=== PATIENT | male | born 1965 | race Caucasian/White ===

== ENCOUNTER → 2023-11-10 10:15 | Outpatient (REF) | payer BC, SELFPAY | LOC: HWRAD 10:15 | PROVIDERS: ATTENDING PHYSICIAN Physician Assistant Medical | DX: M54.50 Low back pain, unspecified (principal) | CPT/HCPCS: 76775 ==

== ENCOUNTER → 2024-01-15 06:32 | Day surgery (SDC) | payer BC, SELFPAY | LOC: GI 06:32 | PROVIDERS: ATTENDING PHYSICIAN Internal Medicine Gastroenterology | DX: Z12.11 Encounter for screening for malignant neoplasm of colon (principal); R19.5 Other fecal abnormalities; K64.8 Other hemorrhoids; K57.30 Diverticulosis of large intestine without perforation or abscess without bleeding | CPT/HCPCS: G0121 ==

== ENCOUNTER 2024-03-25 21:42 | Inpatient (IN) | payer BC, SELFPAY ==
[2024-03-25 14:05] VITALS: BP 136/88
--- NOTE | 2024-03-25 16:05 | ED.GENMED ---
History of Present Illness
General
Chief Complaint: Abdominal Pain
Time Seen by Provider: 03/25/24 16:03
History of Present Illness
History of Present Illness:
HPI: The patient presents with left lower quadrant pain since 9 AM today. He has a history of diverticular disease and had a colonoscopy with Dr. Cristina that showed diffuse diverticulosis earlier this year. The symptoms feel similar to the time
that he had diverticulitis.
EXAM:
GENERAL: Well appearing in mild distress
HEENT: Moist oral mucosa
CARDIOVASCULAR: No murmurs, normal heart rate, regular rhythm, No chest wall tenderness
PULMONARY: No respiratory distress, breath sounds are clear and equal
ABDOMEN: Soft with no peritoneal signs, moderate diffuse abdominal tenderness
NEUROLOGIC: Excellent strength all extremities, no coordination deficits
PSYCHIATRIC: Appropriate mental status, normal insight and judgement
EXTREMITIES: Nontender, no edema, moves all extremities equally
SKIN: No rash, no lesions
TIME OF INITIAL ENCOUNTER: 3:30 PM
NUMBER AND COMPLEXITY OF PROBLEMS ADDRESSED AT THE ENCOUNTER
� Chronic conditions affecting care: Diverticular disease, has had diverticulitis, has had kidney stones
� Acute Exacerbation and/or Progression of Chronic Illness: This is an acute problem
� Differential Diagnosis includes: Diverticulitis, bowel perforation, bowel obstruction,
AMOUNT AND/OR COMPLEXITY OF DATA TO BE REVIEWED AND ANALYZED
� I performed an independent evaluation of and my interpretation is:
EKG:
CT: I personally viewed CT imaging and agree with radiologist interpretation with concern for contained extraluminal perforation and severe diverticulitis
X-rays:
Laboratory Studies: White count 16.6, chemistries unremarkable
Other:
� Review of other/old records: I reviewed records, the patient had a colonoscopy in January which showed diverticulosis involving the entire examined colon
� Clinical information was obtained by an independent historian: I spoke to the at bedside
� Prescriptions/Medications Considered but not given:
� Further testing considered but not performed: Considered Zosyn for treatment however the patient has a penicillin allergy (rash)
RISK OF COMPLICATIONS AND/OR MORBIDITY OR MORTALITY OF PATIENT MANAGEMENT
� Social determinants of health affecting care: Lives at home
� Discussion with other providers: Notified Dr. Condon of the patient's findings; Dr. Robison for admission
� Escalation of care including admission/observation vs risk of discharge considered: The patient arrived somewhat uncomfortable. He had subjective chills at home and has a white count of 16.6. CT imaging delayed due to lack of
CT availability. On reassessment at 9 PM, the patient overall appears improved however the pain persists. Will plan admission to the hospital for further management.
Phy Exam
Physical Exam
Physical Exam:
See HPI
Course
Orders/Labs/Results
Orders:
Orders
03/25/24 16:10
CT Abd/pelvis W Iv Cont Urgent
Comment:
Reason For Exam: diffuse abd pain; prior diverticulitis
HYDROmorphone [Dilaudid] 1 mg IV NOW STA
03/25/24 16:11
0.9% Sodium Chloride 1000 ml [Nss] 1,000 ml IV BOLUS
Ondansetron Injectable [Zofran] 4 mg IV NOW STA
03/25/24 16:24
CMP [Comprehensive Metabolic Panel] Urgent
Complete Blood Count/With Diff Urgent
Lipase Urgent
03/25/24 20:56
Ciprofloxacin 400 mg/[id number] [Cipro 400 mg] 200 ml IV NOW
MetroNIDAZOLE 500 MG/100 ML [Flagyl 500 mg] 100 ml IV NOW
Abnormal Lab Results
03/25/24
16:24
WBC 16.6 H 10^3/uL
(4.8-10.8)
MCH 26.8 L pg
(27.0-31.0)
MCHC 32.6 L g/dL
(33.0-37.0)
MPV 10.6 H fL
(7.4-10.4)
Abs Immat Gran (auto) 0.1 H 10^3/uL
(0-0.05)
Absolute Neuts (auto) 15.1 H 10^3/uL
(1.4-6.5)
Absolute Lymphs (auto) 0.7 L 10^3/uL
(1.2-3.4)
Absolute Monos (auto) 0.7 H 10^3/uL
(0.1-0.6)
Neutrophils % 90.9 H %
(42.2-75.2)
Lymphocytes % 4.3 L %
(20.5-51.1)
Glucose 152 H mg/dl
(70-99)
03/25/24 16:24
03/25/24 16:24
Vital Signs
Initial and Last Documented VS:
Initial Vital Signs
Temp Pulse Resp BP Pulse Ox
98.1 F 95 16 136/88 98
03/25/24 14:05 03/25/24 14:05 03/25/24 14:05 03/25/24 14:05 03/25/24 14:05
Last Documented Vital Signs
Temp Pulse Resp BP Pulse Ox
98.1 F 92 18 148/80 90
03/25/24 14:05 03/25/24 17:52 03/25/24 17:52 03/25/24 17:52 03/25/24 17:52
*Critical Care Note
Total Time (30-74mins, 75-104mins- exclusive of procedures): Not Applicable
ED Attending Note
-
Portions of this chart may have been created with voice recognition software.� Occasional wrong word or��sound alike� substitutions may have occurred due to the inherent limitations of voice recognition software.
Discharge Plan
Departure
Referrals:
Fausto Dejesus PA-C [Family Provider] -
Interventions
Interventions:
*Risk Screen - Suicide Last Done: 03/25/24 16:31
*General Assessment Last Done: 03/25/24 16:31
*Neglect/Abuse Screening Last Done: 03/25/24 16:31
SR-Ixrljn-Jdemzohohg Assessment Last Done: 03/25/24 16:31
Discharge Date and Time
Print Language: PASHTO
[2024-03-25 16:20] VITALS: BMI 31.6
[2024-03-25] MEDS: ZOFRAN 4 MG IV (16:24)
[2024-03-25] MEDS: DILAUDID 1 MG IV (16:24)
[2024-03-25] MEDS: NSS 1000 IV ×2 (16:24→22:44)
[2024-03-25 16:45] LABS: % Basophils 0.2 % (0-2); % Immature Granulocytes 0.5 % (0-0.5); % Lymphocytes 4.3 % (20.5-51.1); % Monocytes 4.1 % (1.7-9.3); % Neutrophils 90.9 % (42.2-75.2); Absolute Immature Granulocytes 0.1 10^3/uL (0-0.05); Absolute Lymphocytes 0.7 10^3/uL (1.2-3.4); Absolute Monocytes 0.7 10^3/uL (0.1-0.6); Absolute Neutrophils 15.1 10^3/uL (1.4-6.5); Hematocrit 45.7 % (39.0-52.0); Hemoglobin 14.9 g/dL (13.0-18.0); Mean Corp Hgb Conc. 32.6 g/dL (33.0-37.0); Mean Corpuscular Hgb 26.8 pg (27.0-31.0); Mean Corpuscular Volume 82.2 fL (80.0-94.0); Mean Platelet Volume 10.6 fL (7.4-10.4); Nucleated Red Blood Cells % 0 % (-); Platelet Count 237 10^3/uL (130-400); Red Blood Cell Count 5.56 10^6/uL (4.70-6.10); Red Cell Dist. Width 14.5 % (11.5-14.5); White Blood Cell Count 16.6 10^3/uL (4.8-10.8)
[2024-03-25 16:51] LABS: ALT (SGPT) 21 U/L (0-50); AST (SGOT) 29 U/L (17-59); Albumin 4.9 g/dl (3.5-5.0); Alkaline Phosphatase 102 U/L (38-126); Blood Urea Nitrogen 15 mg/dl (9-20); Calcium 9.7 mg/dl (8.4-10.2); Carbon Dioxide 26 mmol/L (22-30); Chloride 100 mmol/L (98-107); Estimated Creatinine Clearance 75 ml/min; Glucose 152 mg/dl (70-99); Potassium 4.3 mmol/L (3.5-5.1); Sodium 140 mmol/L (135-145); Total Bilirubin 1.3 mg/dl (0.2-1.3); Total Protein 7.8 g/dl (6.3-8.2); eGFR > 60.00
[2024-03-25 16:59] LABS: Lipase 62 U/L (23-300)
[2024-03-25 17:52] VITALS: BP 148/80
[2024-03-25] MEDS: FLAGYL 500 MG 100 IV (21:07)
--- NOTE | 2024-03-25 21:35 | HPS.HSE ---
Family Physician
-
Family Physician: Fausto Dejesus
Chief Complaint
-
abdominal pain
History of Present Illness
58-year-old male past medical history of hypothyroidism, hypertension, diverticulosis/diverticulitis 10 years ago presenting with left lower quadrant pain since this morning associated with 2 episodes of vomiting. He had chills. He denies
diarrhea. Symptoms feel similar to prior episode of diverticulitis which occurred 10 years ago.
He denies smoking or alcohol use or drugs.
Medical History
Past Medical History
Past Medical History: Reports Other (hypothyroidism, hypertension, diverticulosis/diverticulitis 10 years ago)
Past Surgical History: Reports Other ( Achilles tendon surgery)
Social History
Tobacco: Non-smoker
Alcohol: None
Drug: None
Family History
Family History: Not pertinent
Allergies / Home Medications
Allergies reflects when Allergies were last updated in [employer] (powering [employer]).
Home Medications with original date entered in [employer] (power[employer])
Allergy/Medication List:
Allergies
Allergy/AdvReac Type Severity Reaction Status Date / Time
Penicillins Allergy Mild Rash Verified 03/25/24 14:04
Home Medications
levothyroxine 75 mcg tablet 75 mcg PO DAILY 03/25/24
lisinopril 10 mg tablet 10 mg PO DAILY 03/25/24
therapeutic multivitamin 1 tab PO DAILY 03/25/24
Review of Systems
-
History Source: Patient
A 12 point ROS was completed and negative except as noted: Yes
Constitutional: Reports No Symptoms
EENT: Reports No Symptoms
Respiratory: Reports No Symptoms
Cardiac: Reports No Symptoms
Abdomen/GI: Reports See HPI
: Reports No Symptoms
Musculoskeletal: Reports No Symptoms
Skin: Reports No Symptoms
Neurological: Reports No Symptoms
Endocrine: Reports No Symptoms
Hematologic/Lymphatic: Reports No Symptoms
Psych: Reports No Symptoms
Physical Exam
Vital Signs
Vital Signs
Temp Pulse Resp BP Pulse Ox
98.1 F 92 18 148/80 90
03/25/24 14:05 03/25/24 17:52 03/25/24 17:52 03/25/24 17:52 03/25/24 17:52
Physical Exam
General: Well Developed, Well Nourished and No Apparent Distress
HEENT: NormoCephalic, Moist mucous membranes and Atraumatic
Respiratory: Clear
Cardiac: S1/S2 and Regular Rhythm; No Murmur or Rub
GI: Soft, Non Distended, Normal Bowel Sounds and Tender (diffusely ); No Organomegaly
Rectal: Deferred by Provider
Musculoskeletal: No Clubbing, No Cyanosis and No Edema
Skin: No Rash
Neuro: Nonfocal/grossly intact
Laboratory Results
-
03/25/24 16:24
03/25/24 16:24
Laboratory Results
Total Bilirubin 1.3 mg/dl (0.2-1.3) 03/25/24 16:24
AST 29 U/L (17-59) 03/25/24 16:24
ALT 21 U/L (0-50) 03/25/24 16:24
Alkaline Phosphatase 102 U/L (38-126) 03/25/24 16:24
Lipase 62 U/L (23-300) 03/25/24 16:24
Data Reviewed
-
Lab Data: Labs Reviewed by me
Old Records: Reviewed
Impression/Plan
-
IMPRESSION:
PLAN:
# Severe acute diverticulitis with possible contained extraluminal perforation
-N.p.o.
-IV fluids
-Levaquin/Flagyl
-colorectal surgery consult
-Zofran, Dilaudid as needed
Hypothyroidism
-Continue levothyroxine
Essential hypertension
-Continue lisinopril
Full code
DVT prophylaxis�heparin
N.p.o.
[2024-03-25 21:55] VITALS: BP 128/75
[2024-03-25 22:36] VITALS: BP 124/74
[2024-03-25 22:37] VITALS: BMI 30.5
[2024-03-25] MEDS: TYLENOL 1000 MG PO (22:43)
[2024-03-25] MEDS: LEVAQUIN 150 IV (22:44)
[2024-03-26] VITALS (12 sets, daily range): BP systolic 104–162; BP diastolic 41–84
[2024-03-26] MEDS: SYNTHROID 75 MCG PO (05:36)
[2024-03-26] MEDS: FLAGYL 500 MG 100 IV ×3 (05:36→21:35)
--- NOTE | 2024-03-26 07:36 | W.PN.HOSP.TC ---
Addendum entered and electronically signed by Scot Birch MD 03/26/24 14:46:
severe diverticulitis with perforation.
-continue iv atb
-colorectal surgery planning for OR with colectomy and colostomy
-npo
-ivf
hypothyroidism
-continue levothyroxine
htn
-continue antihypertensive
Original Note:
Today's Communication/Plan
-
.
Assessment / Plan
Assessment / Plan
58-year-old male PMH of hypothyroidism, hypertension, diverticulosis/diverticulitis 10 years ago presenting with left lower quadrant pain and emesis.
# Severe acute diverticulitis with possible contained extraluminal perforation
-NPO
-IV fluids
-Levaquin/Flagyl
-colorectal surgery consulted. Likely will tke patient for sx today due to rising WBC
-Zofran, Dilaudid as needed
-Febrile to 102.1 on 03/25. Tylenol 650 PRN ordered.
- Continue to monitor fever curve
Leukocytosis
- likely secondary to diverticulitis
- WBC uptrending - 16.6 -->23
- Continue to monitor WBC count
Hypothyroidism
-Continue levothyroxine
Essential hypertension
-Hold Lisinopril for now. BP 124/62
- continue to monitor
Full code
DVT prophylaxis�heparin
NPO
--------
CT AP - 03/25
IMPRESSION: As described, CT findings compatible with severe diverticulitis.
Adjacent to the sigmoid colon in the pelvis, there is an extraluminal collection which is predominantly air, with no significant fluid component. This would be compatible with contained extraluminal perforation. No evidence for free air elsewhere
within the abdomen or pelvis.
There is a small to moderate amount of free fluid within the pelvis bilaterally and also within the pelvic cul-de-sac, likely reactive fluid.
1 cm low-density lesions within the spleen, likely a small cyst or hemangioma. This is very likely a benign lesion for which no further imaging follow-up is recommended.
Minimal posterior right pleural effusion. Trace amount of posterior left pleural fluid. Atelectasis within the lower lungs.
Cholelithiasis. No CT findings to suggest acute cholecystitis.
Bilateral fat-containing inguinal hernias, and appears indirect on the left and direct on the right, larger on the left. There is also a small amount of fluid extending into the left inguinal hernia.
Anticipated Discharge: 24 - 48 hours
Subjective/Interval History
-
Date of Service: March 26, 2024
Patient reports 2 out of 10 pain today. Currently n.p.o., likely going for surgery with colorectal due to extraluminal perforation. Patient febrile overnight.
Objective Data
-
Labs:
Laboratory Results
03/26/24
06:00
WBC Pending
Hgb Pending
Hct Pending
Plt Count Pending
Sodium Pending
Potassium Pending
Chloride Pending
Carbon Dioxide Pending
BUN Pending
Creatinine Pending
Glucose Pending
Calcium Pending
Total Bilirubin Pending
AST Pending
ALT Pending
Alkaline Phosphatase Pending
Vital Signs:
Vital Signs
Temp Pulse Resp BP Pulse Ox
99.6 F 104 18 124/74 94
03/26/24 00:20 03/25/24 22:36 03/25/24 22:36 03/25/24 22:36 03/25/24 22:36
I&O
03/25/24 03/26/24 03/27/24
06:59 06:59 06:59
Intake Total 800 / 800
Balance 800 / 800
Review of Systems
-
History Source: Patient
Constitutional: Reports Other (Pain)
Respiratory: Reports No Symptoms
Cardiac: Reports No Symptoms
Abdomen/GI: Reports Abdominal Pain
Neuro: Reports No Symptoms
Physical Exam
-
General: Well Developed, Pain and Conversant
HEENT: Normocephalic and Atraumatic
Respiratory: Clear to Auscultation
Cardiac: Regular Rhythm and S1/S2
GI: Tender, Distended and Other (Bowel sounds heard best in the right upper and right lower quadrant)
Musculoskeletal: No Clubbing, No Cyanosis and No Edema
Skin: Warm and Dry
Neuro: AO x 3
Data Reviewed
-
CT Scan: Report Reviewed by me
Labs: Labs Reviewed by me and Discussed with Physician
Old Records: Reviewed
[2024-03-26 08:22] LABS: Hematocrit 40.7 % (39.0-52.0); Hemoglobin 13.4 g/dL (13.0-18.0); Mean Corp Hgb Conc. 32.9 g/dL (33.0-37.0); Mean Corpuscular Hgb 27.1 pg (27.0-31.0); Mean Corpuscular Volume 82.2 fL (80.0-94.0); Mean Platelet Volume 10.2 fL (7.4-10.4); Platelet Count 180 10^3/uL (130-400); Red Blood Cell Count 4.95 10^6/uL (4.70-6.10); Red Cell Dist. Width 14.6 % (11.5-14.5)
[2024-03-26 08:32] LABS: Lactic Acid 2.5 mmol/L (0.7-2.0)
[2024-03-26 08:55] LABS: Absolute Neutrophils -Man Diff 18.8 10^3/uL (1.4-6.5); Band Neutrophils 29 % (0-3); Lymphocytes 7 % (20-51); Metamyelocytes 3 % (-); Monocytes 7 % (2-9); Myelocytes 1 % (-); Segmented Neutrophils 53 % (42-75)
[2024-03-26 08:56] LABS: Anisocytosis 1+; Hypochromasia 1+; Normal RBC Morphology No; Ovalocytes 1+; Platelets Checked Yes; Total Cells Counted 100
[2024-03-26 09:01] LABS: ALT (SGPT) 17 U/L (0-50); AST (SGOT) 26 U/L (17-59); Albumin 3.5 g/dl (3.5-5.0); Alkaline Phosphatase 73 U/L (38-126); Blood Urea Nitrogen 24 mg/dl (9-20); Calcium 8.7 mg/dl (8.4-10.2); Carbon Dioxide 25 mmol/L (22-30); Chloride 101 mmol/L (98-107); Estimated Creatinine Clearance 53 ml/min; Glucose 104 mg/dl (70-99); Potassium 5.6 mmol/L (3.5-5.1); Sodium 136 mmol/L (135-145); Total Bilirubin 1.7 mg/dl (0.2-1.3); Total Protein 5.9 g/dl (6.3-8.2); eGFR 43.63
[2024-03-26] MEDS: ZESTRIL PO (09:18)
[2024-03-26] MEDS: HEPARIN 5000 UNITS SC ×2 (09:20→23:42)
[2024-03-26] MEDS: NSS 1000 IV (09:20)
--- NOTE | 2024-03-26 09:28 | WOUNDNOTE ---
[facility] RN note: KATHERINE Aragon requested L sided stoma marking. Patient admitted with acute diverticulitis. Patient stated his abdomen is slightly distended. Stoma marked patient L side in 2 places marking L upper davin '1st Choice'. LUQ stoma davin
7.3cm to L of midline and 4.7cm above umbilical line. L lower stoma davin 7.8cm to L of midline along umbilical line. Instructed patient surgeon makes the final decision with stoma placement. Patient gave verbal permission for ostomy nurse to call
his to include for ostomy teaching session next week if patient has an ostomy.
--- NOTE | 2024-03-26 12:12 | CON.CRS ---
Consultation
-
Date/Time Consultation Requested: 03/25/2024, 22:20
Date/Time Consultation Performed: 03/26/2024, 08:00
Requesting Provider: Piper Arnold MD
Performing Provider: Jori Condon MD
Reason for Consultation: diverticulitis
Medical History
-
Chief Complaint: abdominal pain
History of Present Illness:
58-year-old male, with a past medical history of 1 prior attack of diverticulitis about 10 years ago, presents to [place] ER last night due to abdominal pain and vomiting. The patient states this started about 9 AM yesterday and he vomited for
about an hour and a half. His abdominal pain elevated to an 8 out of 10 and he went to the ER. He had chills during this episode. On arrival to the ER his WBC was 16.6. His temperature was 102.1. CT of the abdomen and pelvis showed an
extraluminal collection predominantly air, with no significant fluid component. This is compatible with a contained extraluminal perforation. No evidence for free air.
He was started on IV fluids and IV antibiotics. He currently states he has not had a bowel movement since yesterday. He is not hungry. His pain is now a 3 out of 10. He has remained afebrile since admission. However his WBC is now 23.0. We
have been consulted for further surgical recommendation..
Past Medical History
Past Medical History: Other (hypothyroidism, hypertension, diverticulosis/diverticulitis 10 years ago)
Past Surgical History: Other (Achilles tendon surgery)
Social History
Tobacco: Non-Smoker
Alcohol: None
Drug: None
Family History
Family History: Reviewed & Not Pertinent
Allergies / Home Medications
Allergy/AdvReac Type Severity Reaction Status Date / Time
Penicillins Allergy Rash Verified 03/25/24 22:07
�Medication �Instructions �Recorded �Confirmed �Type
levothyroxine 75 mcg tablet 75 mcg PO DAILY Thyroid 03/25/24 03/25/24 History
lisinopril 10 mg tablet 10 mg PO DAILY Blood Pressure 03/25/24 03/25/24 History
therapeutic multivitamin 1 tab PO DAILY Supplement 03/25/24 03/25/24 History
Review of Systems
-
History Source: Patient
All other systems: Negative unless noted
Constitutional: Fever and Chills
Abdomen/GI: Abdominal Pain and Vomiting
A 10 point review of systems was completed, and was negative except as per HPI.
Physical Exam
Vital Signs
Temp 100 F 03/26/24 11:39
Pulse 88 03/26/24 11:39
Resp Rate 18 03/26/24 11:39
Blood pressure 138/74 03/26/24 11:39
SaO2 99 03/26/24 11:39
03/25/24 03/26/24 03/27/24
06:59 06:59 06:59
Actual Weight 96.36 kg
Body Mass Index (BMI) 30.5
Lab Results / Allergies
03/26/24 08:01
03/26/24 08:01
WBC 23.0 10^3/uL (4.8-10.8) H 03/26/24 08:01
Hgb 13.4 g/dL (13.0-18.0) 03/26/24 08:01
Hct 40.7 % (39.0-52.0) 03/26/24 08:01
Plt Count 180 10^3/uL (130-400) D 03/26/24 08:01
Abs Immat Gran (auto) 0.1 10^3/uL (0-0.05) H 03/25/24 16:24
Neutrophils % 90.9 % (42.2-75.2) H 03/25/24 16:24
Allergy/AdvReac Type Severity Reaction Status Date / Time
Penicillins Allergy Rash Verified 03/25/24 22:07
Physical Exam
General: Well Developed, Well Nourished and No Apparent Distress
GI: Non Distended and Tender (Tender throughout, guarding in all 4 quadrants)
Neuro: AO x 3
Data Reviewed
-
CT Scan: Image Personally Visualized and interpreted, Report Reviewed by me and Discussed with Patient
Labs: Labs Reviewed by me, Discussed with Physician and Discussed with Patient
Assessment / Plan
-
Assessment: 58-year-old male with 1 previous attack of diverticulitis 10 years ago now with abdominal pain and vomiting, found to have sigmoid diverticulitis with an extraluminal perforation and a WBC of 23.0 with guarding on exam
Plan:
Given his exam along with his increased WBC, fever, and CT findings, surgery is recommended. Discussed at length with patient. Surgery would involve a sigmoidectomy with colostomy creation. Patient is to remain NPO. We have consulted the wound
nurse for stoma marking. Continue IV fluids and IV antibiotics. OR preparations are in place. Anticipate later afternoon.
[2024-03-26 13:34] LABS: INR 1.76; PT 20.4 Sec (11.4-14.6)
[2024-03-26 13:36] LABS: APTT 38.9 Sec (23.4-35.0)
[2024-03-26] MEDS: TYLENOL 650 MG PO (16:01)
--- NOTE | 2024-03-26 18:15 | PTCARENOTE ---
Continued monitoring of patient throughout shift, pt has no increase in pain remains 3/10 not requiring Dilaudid.Continues on IVF. Pt blood pressure stable throughout shift HR slightly elevated 100s when febrile. POX 95-96% on RA no shortness of
breath noted. Pt having temps most recent being 101.7, medicated with tylenol prior with no improvement spoke with MD orders for additional tylenol to be given. Upon retrieval of orders OR calling for report, Updated RN on fever trend and last
administered tylenol. Plan to give down in OR. Pt taken to OR in bed with chart and automobile brake bonder antibiotic. updated on POC.
--- NOTE | 2024-03-26 20:38 | W.IMMPOSTOP ---
Surgical Immed Post Op Note
-
Primary Surgeon: Ping George MD
Hand Upper And Bottom Lacer: OLGA Foreman
Pre-op Diagnosis: Perforated sigmoid diverticulitis
Post-op Diagnosis: Same
Procedure Performed: Exploratory laparotomy, sigmoidectomy and end colostomy (Ines's procedure)
Anesthesia Type: STEPHANIE, GET
Specimen / Cultures: Peritoneal cultures (aerobic and anaerobic)
Sigmoid colon (suture is distal)
Estimated Blood Loss: 30cc
Complications: None
Operative Findings: Moderate amount of purulence throughout the abdomen (Hinchey III)
Large perforation of the distal sigmoid colon
Seprafilm around the stoma and under the incision
Patient's updated.
--- NOTE | 2024-03-26 22:30 | PTCARENOTE ---
Received pt. to [address] from PACU, surgical incisions inspected with off-going PACU nurse. NGT resumed to suction per orders with minimal dark green output, childs draining clear yellow urine, IVF infusing, 2L NC continued from PACU. Pt. A&Ox3,
drowsy but arousable to verbal stimuli, even and unlabored breathing on 2L NC, and VSS. Bed locked and in lowest position, side rails in place, and call light within reach.
[2024-03-26] MEDS: LEVAQUIN 150 IV (23:42)
[2024-03-26] MEDS: NSS IV (23:49)
[2024-03-27] VITALS (10 sets, daily range): BP systolic 92–129; BP diastolic 56–67
[2024-03-27] MEDS: NSS 1000 IV ×2 (02:12→13:08)
[2024-03-27] MEDS: FLAGYL 500 MG 100 IV ×3 (05:54→21:03)
[2024-03-27] MEDS: SYNTHROID 75 MCG PO (05:55)
[2024-03-27 07:07] LABS: Hematocrit 38.1 % (39.0-52.0); Hemoglobin 12.8 g/dL (13.0-18.0); Mean Corp Hgb Conc. 33.6 g/dL (33.0-37.0); Mean Corpuscular Hgb 26.7 pg (27.0-31.0); Mean Corpuscular Volume 79.5 fL (80.0-94.0); Mean Platelet Volume 10.9 fL (7.4-10.4); Platelet Count 148 10^3/uL (130-400); Red Blood Cell Count 4.79 10^6/uL (4.70-6.10); Red Cell Dist. Width 14.9 % (11.5-14.5); White Blood Cell Count 15.7 10^3/uL (4.8-10.8)
[2024-03-27 07:24] LABS: Absolute Neutrophils -Man Diff 14.9 10^3/uL (1.4-6.5); Band Neutrophils 37 % (0-3); Lymphocytes 4 % (20-51); Segmented Neutrophils 58 % (42-75); Total Cells Counted 100
[2024-03-27 07:25] LABS: Monocytes 1 % (2-9)
[2024-03-27 07:26] LABS: Anisocytosis 1+; Hypochromasia 1+; Normal RBC Morphology No; Toxic Granulation 1+
[2024-03-27 07:27] LABS: ALT (SGPT) 15 U/L (0-50); AST (SGOT) 26 U/L (17-59); Albumin 2.5 g/dl (3.5-5.0); Alkaline Phosphatase 57 U/L (38-126); Blood Urea Nitrogen 24 mg/dl (9-20); Calcium 7.4 mg/dl (8.4-10.2); Carbon Dioxide 24 mmol/L (22-30); Chloride 102 mmol/L (98-107); Estimated Creatinine Clearance 60 ml/min; Glucose 121 mg/dl (70-99); Platelets Checked Yes; Potassium 4.2 mmol/L (3.5-5.1); Sodium 134 mmol/L (135-145); Total Bilirubin 0.8 mg/dl (0.2-1.3); Total Protein 4.7 g/dl (6.3-8.2); eGFR 50.26
[2024-03-27] MEDS: HEPARIN 5000 UNITS SC ×2 (08:07→15:05)
[2024-03-27] MEDS: ZESTRIL 10 MG PO (08:07)
--- NOTE | 2024-03-27 10:01 | CM ---
milieu manager reviewed patient's chart and met with patient and patient lives with his spouse in a 2 story home, no steps to enter, patient is independent with adl's and ambulation no dme, patient drives, per notes spouse to come to [facility]
for [facility], plan is to home with visiting nurses, options reviewed and patient is agreeable to [facility], referral sent to [facility].
Pharmacy: [facility]
PCP: Dr. Beltran
Plan; Home with VN
--- NOTE | 2024-03-27 11:40 | W.PN.CRS1 ---
Today's Communication / Plan
-
NGT/NPO/IVF
Assessment/Plan
-
58 yo male who is POD #1 ex lap with Ines's procedure due to perforated sigmoid diverticulitis
Last fever was around time of surgery, currently AFVSS
Leukocytosis improving post op
Cr trending back down
Await bowel function: NGT with bilious outputs
--NPO with NGT to suction until ROBF
--IVF as per medicine team
--Multimodal analgesics, hold NSAIDs d/t renal function
--Stoma nurse consulted for ostomy teaching
--C/W IV ABX, Wound cx pending
--Follow labs
--C/W childs
--IV protonix 40mg for GI ppx
--Heparin sq and SCD's for VTE ppx
Subjective Data
Procedure
Exploratory laparotomy, sigmoidectomy and end colostomy (Ines's procedure)
Subjective Data
Date of Service: March 27, 2024
Patient seen and examined at bedside with Dr. George. Denies n/v. Pain minimal. No passage of flatus as of yet. OOB to chair, comfortable.
Objective Data
-
Vital Signs
Temp Pulse Resp BP Pulse Ox
98.3 F 91 16 109/60 97
03/27/24 07:15 03/27/24 08:07 03/27/24 07:15 03/27/24 08:07 03/27/24 08:06
Intake & Output
03/26/24 03/27/24 03/28/24
06:59 06:59 06:59
Intake Total 800 / 800 270 / 270
Output Total 500 / 500
Balance 800 / 800 -230 / -230
Intake:
Oral fluids 120 / 120
IV fluids (Total) 800 / 800 150 / 150
NORMOSOL 100 / 100
NSS 50 / 50
Amount instilled into GI Tube ( 0 / 0
Total)
[place] Sump 0 / 0
Output:
Gastrointestinal tube output ( 0 / 0
Total)
[place] Sump 0 / 0
Urine, Childs 500 / 500
Other:
Number of approximated MODERATE 2
amounts of urine
Lab Results
03/27/24 06:02
03/27/24 06:02
Physical Exam
-
General: No Acute Distress
HEENT: Grossly Normal
Abdomen: Soft, Distended, Non Tender, No Bowel Movement, No Flatus and Other (stoma pink/viable with bowel sweat in appliance. NGT with bilious green outputs)
Skin: Warm and Dry
Wound: Dressing in Place (Aquacel dressing: shadowing noted)
--- NOTE | 2024-03-27 12:40 | W.PN.HOSP.TC ---
Today's Communication/Plan
-
NAD, resting comfortably in bed
Scleral anicteric, NGT with green drainage
Moist mucous membranes
No JVD
CTA bilateral
Normal S1-S2 no murmurs
Soft nontender nondistended bowel sounds active
-Incision line covered with a bandage noted some dried blood under however I did not lift the bandage off. Colostomy with some blood. No air
No peripheral pitting edema
Moves extremities spontaneously
AAOx3
Severe sepsis secondary to suspected acute diverticulitis with perforation. S/p colectomy with colostomy with surgery. Noted drainage at the time of surgery. Levofloxacin and metronidazole IV. At this time we will continue this. Follow-up on
wound culture. Maintain NGT. Will need colostomy care instructions on DC. Heart remains in place likely able to take out in the next 24 hours perform trial of void at that time. IV fluids. Bowel rest. Analgesics. Follow surgery recommendation
-Will need eventual C-scope within the next 6 to 8 weeks once the bowels cooldown.
-Lactate has been ordered to be repeated. Will need to follow-up. IV fluids for now
MIGUEL likely prerenal in nature improving. Continue IV fluids. Avoid nephrotoxins hypotension.
Hyponatremia, acute, expect to improve once starting p.o. intake. Provide IV fluids for now.
Pseudo hypocalcemia corrects 8.6 with albumin
Hypertension continue hypertensive
GERD continue PPI
Hypothyroidism levothyroxine
Assessment / Plan
Assessment / Plan
58-year-old male PMH of hypothyroidism, hypertension, diverticulosis/diverticulitis 10 years ago presenting with left lower quadrant pain and emesis.
# Severe acute diverticulitis with possible contained extraluminal perforation
-NPO
-IV fluids
-Levaquin/Flagyl
-colorectal surgery consulted. Likely will tke patient for sx today due to rising WBC
-Zofran, Dilaudid as needed
-Febrile to 102.1 on 03/25. Tylenol 650 PRN ordered.
- Continue to monitor fever curve
Leukocytosis
- likely secondary to diverticulitis
- WBC uptrending - 16.6 -->23
- Continue to monitor WBC count
Hypothyroidism
-Continue levothyroxine
Essential hypertension
-Hold Lisinopril for now. BP 124/62
- continue to monitor
Full code
DVT prophylaxis�heparin
NPO
--------
CT AP - 03/25
IMPRESSION: As described, CT findings compatible with severe diverticulitis.
Adjacent to the sigmoid colon in the pelvis, there is an extraluminal collection which is predominantly air, with no significant fluid component. This would be compatible with contained extraluminal perforation. No evidence for free air elsewhere
within the abdomen or pelvis.
There is a small to moderate amount of free fluid within the pelvis bilaterally and also within the pelvic cul-de-sac, likely reactive fluid.
1 cm low-density lesions within the spleen, likely a small cyst or hemangioma. This is very likely a benign lesion for which no further imaging follow-up is recommended.
Minimal posterior right pleural effusion. Trace amount of posterior left pleural fluid. Atelectasis within the lower lungs.
Cholelithiasis. No CT findings to suggest acute cholecystitis.
Bilateral fat-containing inguinal hernias, and appears indirect on the left and direct on the right, larger on the left. There is also a small amount of fluid extending into the left inguinal hernia.
Anticipated Discharge: > 48 hours
Subjective/Interval History
-
Date of Service: March 27, 2024
There are no new complaints. States he is feeling significantly better after colostomy. Tolerating NGT well.
Objective Data
-
Labs:
Laboratory Results
03/27/24
06:02
WBC 15.7 H
Hgb 12.8 L
Hct 38.1 L
Plt Count 148
Sodium 134 L
Potassium 4.2
Chloride 102
Carbon Dioxide 24
BUN 24 H
Creatinine 1.6 H
Glucose 121 H
Calcium 7.4 L
Total Bilirubin 0.8
AST 26
ALT 15
Alkaline Phosphatase 57
Vital Signs:
Vital Signs
Temp Pulse Resp BP Pulse Ox
98.1 F 87 16 100/60 96
03/27/24 11:10 03/27/24 11:10 03/27/24 11:10 03/27/24 11:10 03/27/24 11:10
I&O
03/26/24 03/27/24 03/28/24
06:59 06:59 06:59
Intake Total 800 / 800 270 / 270
Output Total 500 / 500 400 / 400
Balance 800 / 800 -230 / -230 -400 / -400
[2024-03-27] MEDS: PROTONIX IV 40 MG IV (13:00)
[2024-03-27] MEDS: NSS (PRESERVATIVE FREE) 10 ML IV (13:00)
[2024-03-27] MEDS: NSS (PRESERVATIVE FREE) IV (19:21)
[2024-03-27] MEDS: OFIRMEV 100 IV (19:43)
[2024-03-27] MEDS: LEVAQUIN 150 IV (22:34)
[2024-03-28] MEDS: HEPARIN 5000 UNITS SC ×3 (00:25→17:24)
[2024-03-28] MEDS: NSS 1000 IV ×2 (01:48→13:28)
[2024-03-28] MEDS: SYNTHROID 75 MCG PO (05:57)
[2024-03-28] MEDS: FLAGYL 500 MG 100 IV ×3 (05:57→21:06)
[2024-03-28 07:02] VITALS: BP 133/70
[2024-03-28] MEDS: NSS (PRESERVATIVE FREE) 10 ML IV (08:19)
[2024-03-28] MEDS: PROTONIX IV 40 MG IV (08:20)
[2024-03-28] MEDS: ZESTRIL 10 MG PO (08:20)
--- NOTE | 2024-03-28 09:19 | W.PN.HOSP.TC ---
Today's Communication/Plan
-
Continue Levaquin and flagyl
Continue to IVF
Follow surgery recommendations for NG tube, and advancing diet.
Assessment / Plan
Assessment / Plan
Assessment-
58-year-old male PMH of hypothyroidism, hypertension, diverticulosis/diverticulitis 10 years ago presenting with left lower quadrant pain and emesis.
Plan -
Severe sepsis -
Likely from purulent peritonitis secondary to extraluminal perforation of diverticulitis.
SIRS criteria plus elevated lactic acid levels, repeat lactic acid levels yesterday did not result
Ordered a repeat lactic acid levels today. Follow-up lactic acid levels for sepsis resolution
Currently patient is afebrile, WBC trending down, leukocytosis improving, tachycardia and tachypnea resolved.
Preliminary wound culture for abdominal fluids has gram-negative bacilli
Pending final cultures. Follow-up on cultures.
Severe acute diverticulitis with extraluminal perforation and purulent peritonitis.
S/p exploratory laparotomy with Brower's procedure, POD #2
Colostomy-minimal drainage, currently on voiding trial.
Continue IV fluid support and bowel rest. NG tube clamping per surgery recommendations.
Levaquin and Flagyl-day 4, leukocytosis improving.
Zofran for nausea and Dilaudid for pain as needed.
Patient was febrile upon admission, currently remains afebrile.
Continue monitoring temperature curve
Leukocytosis
Likely secondary to peritonitis, WBC peaked to 23, currently WBC trending down-18-13.3.
Continue antibiotics.
Continue to trend CBC.
MIGUEL-
Prerenal azotemia secondary to purulent peritonitis and diverticulitis.
Improving with IV fluids, currently Sr.Cr-1.4.
Continue IV hydration and continue to trend renal function.
Avoid nephrotoxic agents,
Hypothyroidism
Continue levothyroxine
Essential hypertension
Continue lisinopril
continue to monitor
Full code
DVT prophylaxis -on SCD.
Data reviewed
CT AP - 03/25
IMPRESSION: As described, CT findings compatible with severe diverticulitis.
Adjacent to the sigmoid colon in the pelvis, there is an extraluminal collection which is predominantly air, with no significant fluid component. This would be compatible with contained extraluminal perforation. No evidence for free air elsewhere
within the abdomen or pelvis.
There is a small to moderate amount of free fluid within the pelvis bilaterally and also within the pelvic cul-de-sac, likely reactive fluid.
1 cm low-density lesions within the spleen, likely a small cyst or hemangioma. This is very likely a benign lesion for which no further imaging follow-up is recommended.
Minimal posterior right pleural effusion. Trace amount of posterior left pleural fluid. Atelectasis within the lower lungs.
Cholelithiasis. No CT findings to suggest acute cholecystitis.
Bilateral fat-containing inguinal hernias, and appears indirect on the left and direct on the right, larger on the left. There is also a small amount of fluid extending into the left inguinal hernia.
Anticipated Discharge: > 48 hours
Subjective/Interval History
-
Date of Service: March 28, 2024
Patient reports no complaints overnight his NG tube drain overnight has 400 mL of collection by 6:30 AM in the morning. Patient reports discomfort from NG tube and belching.
Otherwise denies any other complaints.
Objective Data
-
Labs:
Laboratory Results
03/28/24
08:07
WBC Pending
Hgb Pending
Hct Pending
Plt Count Pending
Sodium Pending
Potassium Pending
Chloride Pending
Carbon Dioxide Pending
BUN Pending
Creatinine Pending
Glucose Pending
Calcium Pending
Vital Signs:
Vital Signs
Temp Pulse Resp BP Pulse Ox
99.8 F 81 16 133/70 95
03/28/24 07:02 03/28/24 07:02 03/28/24 07:02 03/28/24 08:20 03/28/24 08:00
I&O
03/27/24 03/28/24 03/29/24
06:59 06:59 06:59
Intake Total 270 / 270 1380 / 1380
Output Total 500 / 500 2375 / 2375
Balance -230 / -230 -995 / -995
Review of Systems
-
History Source: Patient
Constitutional: Reports No Symptoms
Respiratory: Reports No Symptoms
Cardiac: Reports No Symptoms
Abdomen/GI: Reports Other (Belching, mild pain in the abdomen. Noticed some gas through ostomy.)
Genitourinary: Reports No Symptoms
Musculoskeletal: Reports No Symptoms
Endocrine: Reports No Symptoms
Hematologic / Lymphatic: Reports No Symptoms
Physical Exam
-
General: No Apparent Distress, Comfortable and Other (NG tube, ostomy present, wound dressing on abdomen intact, ostomy output-not significant, NG tube output-bilious stained, 400 mL overnight.)
HEENT: Normocephalic, Atraumatic and Moist Mucous Membranes
Respiratory: Clear to Auscultation; Negative Wheezes, Rales or Rhonchi
Cardiac: Regular Rhythm and S1/S2; Negative Murmur, Rub or Gallop
GI: Soft, Nontender, Nondistended and Normal Bowel Sounds
Genito-urinary: No Costovertebral Tender
Musculoskeletal: No Clubbing, No Cyanosis and No Edema
Skin: Warm
Neuro: AO x 3
Psych: Calm
[2024-03-28 09:32] LABS: Hematocrit 32.3 % (39.0-52.0); Hemoglobin 10.8 g/dL (13.0-18.0); Mean Corp Hgb Conc. 33.4 g/dL (33.0-37.0); Mean Corpuscular Hgb 26.5 pg (27.0-31.0); Mean Corpuscular Volume 79.4 fL (80.0-94.0); Platelet Count 155 10^3/uL (130-400); Red Blood Cell Count 4.07 10^6/uL (4.70-6.10); Red Cell Dist. Width 14.9 % (11.5-14.5); White Blood Cell Count 13.6 10^3/uL (4.8-10.8)
[2024-03-28 10:07] LABS: Blood Urea Nitrogen 21 mg/dl (9-20); Calcium 7.7 mg/dl (8.4-10.2); Carbon Dioxide 25 mmol/L (22-30); Chloride 104 mmol/L (98-107); Estimated Creatinine Clearance 69 ml/min; Glucose 90 mg/dl (70-99); Magnesium 2.2 mg/dl (1.6-2.3); Potassium 4.1 mmol/L (3.5-5.1); Sodium 136 mmol/L (135-145); eGFR 58.99
[2024-03-28 10:53] VITALS: BP 133/70
[2024-03-28 11:05] VITALS: BP 141/59
--- NOTE | 2024-03-28 11:22 | CM ---
Chart reviewed and plan is to home with spouse and [facility] when stable.
Plan; Home with spouse and [facility] when stable.
--- NOTE | 2024-03-28 11:33 | W.PN.HOSP.TC ---
Today's Communication/Plan
-
.
Assessment / Plan
Assessment / Plan
NAD, resting comfortably in bed
Scleral anicteric, NGT with green drainage
Moist mucous membranes
No JVD
CTA bilateral
Normal S1-S2 no murmurs
Soft nontender nondistended bowel sounds absent
-Incision line covered with a bandage noted some dried blood under however I did not lift the bandage off. Colostomy with some blood. No air
No peripheral pitting edema
Moves extremities spontaneously
AAOx3
Severe sepsis secondary to suspected acute diverticulitis with perforation. S/p colectomy with colostomy with surgery. Noted drainage at the time of surgery. Levofloxacin and metronidazole IV. At this time we will continue this. Follow-up on
wound culture. Maintain NGT. Will need colostomy care instructions on DC. IV fluids. Bowel rest. Analgesics. Follow surgery recommendation
-Will need eventual C-scope within the next 6 to 8 weeks once the bowels cooldown.
-Lactate has been ordered to be repeated. Will need to follow-up. IV fluids for now
MIGUEL likely prerenal in nature improving. Continue IV fluids. Avoid nephrotoxins hypotension.
-On ACEi renal function continues to improve. Would continue the same
- -Would not hold at this time time
-Seems close to his baseline renal function at this time.
Hyponatremia, acute, expect to improve once starting p.o. intake. Provide IV fluids for now.
Pseudohypocalcemia corrects 8.6 with albumin
Hypertension continue hypertensive
GERD continue PPI
Hypothyroidism levothyroxine
Anticipated Discharge: 24 - 48 hours
Subjective/Interval History
-
Date of Service: March 28, 2024
Seen and examined. No new complaints. No acute overnight events.
Family at bedside. Update provided.
States he is feeling much better. Still has significant output from NGT.
Bag gets some air and blood in it.
States earlier this morning his bowels were rumbling.
Objective Data
-
Labs:
Laboratory Results
03/28/24
08:07
WBC 13.6 H
Hgb 10.8 L
Hct 32.3 L
Plt Count 155
Sodium 136
Potassium 4.1
Chloride 104
Carbon Dioxide 25
BUN 21 H
Creatinine 1.4 H
Glucose 90
Calcium 7.7 L
Vital Signs:
Vital Signs
Temp Pulse Resp BP Pulse Ox
99.8 F 52 16 141/59 95
03/28/24 11:05 03/28/24 11:05 03/28/24 11:05 03/28/24 11:05 03/28/24 11:05
I&O
03/27/24 03/28/24 03/29/24
06:59 06:59 06:59
Intake Total 270 / 270 1380 / 1380
Output Total 500 / 500 2375 / 2375 300 / 300
Balance -230 / -230 -995 / -995 -300 / -300
--- NOTE | 2024-03-28 12:11 | W.PN.CRS1 ---
Today's Communication / Plan
-
C/w NGT
Assessment/Plan
-
58 yo male who is POD #2 ex lap with Ines's procedure due to perforated sigmoid diverticulitis
Last fever was around time of surgery, currently AFVSS
Leukocytosis improving post op
Cr trending back down
Mild anemia likely secondary to hemodilution, although with expected intraop losses
Await bowel function: NGT with bilious outputs
--NPO with NGT to suction until ROBF
--IVF as per medicine team
--Multimodal analgesics, hold NSAIDs d/t renal function
--Stoma nurse consulted for ostomy teaching
--C/W IV ABX, Wound cx with gnb, final results pending
--Follow labs
--VT today
--IV protonix 40mg for GI ppx
--Heparin sq and SCD's for VTE ppx
Subjective Data
Procedure
Exploratory laparotomy, sigmoidectomy and end colostomy (Ines's procedure)
Subjective Data
Date of Service: March 28, 2024
Patient seen and evaluated at bedside with Dr George. Brien n/v. Denies pain. No passage of flatus as of yet.
Objective Data
-
Vital Signs
Temp Pulse Resp BP Pulse Ox
99.8 F 52 16 141/59 95
03/28/24 11:05 03/28/24 11:05 03/28/24 11:05 03/28/24 11:05 03/28/24 11:05
Intake & Output
03/27/24 03/28/24 03/29/24
06:59 06:59 06:59
Intake Total 270 / 270 1380 / 1380
Output Total 500 / 500 2375 / 2375 300 / 300
Balance -230 / -230 -995 / -995 -300 / -300
Intake:
Oral fluids 120 / 120
IV fluids (Total) 150 / 150 1100 / 1100
NORMOSOL 100 / 100
NSS 50 / 50
IV piggybacks 100 / 100
Amount instilled into GI Tube ( 0 / 0 180 / 180
Total)
[place] Sump 0 / 0 180 / 180
Output:
Gastrointestinal tube output ( 0 / 0 900 / 900
Total)
[place] Sump 0 / 0 900 / 900
Urine, Heart 500 / 500 625 / 625
Urine, Voided 850 / 850 300 / 300
Other:
Number of approximated MODERATE 2
amounts of urine
Lab Results
03/28/24 08:07
03/28/24 08:07
Physical Exam
-
General: No Acute Distress
HEENT: Grossly Normal
Abdomen: Soft, Distended, Non Tender, No Bowel Movement, No Flatus and Other (stoma pink/viable with bowel sweat in appliance. NGT with bilious green outputs)
Skin: Warm and Dry
Wound: Dressing in Place (Aquacel dressing: shadowing noted)
[2024-03-28 14:26] LABS: Lactic Acid 0.9 mmol/L (0.7-2.0)
[2024-03-28 15:02] VITALS: BP 135/67
[2024-03-28] MEDS: NSS (PRESERVATIVE FREE) IV (19:30)
[2024-03-28] MEDS: LEVAQUIN 150 IV (22:51)
[2024-03-28] MEDS: MELATONIN PO (22:52)
[2024-03-28 23:00] VITALS: BP 134/67
[2024-03-29] MEDS: HEPARIN 5000 UNITS SC ×4 (00:11→23:00)
[2024-03-29] MEDS: MELATONIN PO ×2 (01:06→23:10)
[2024-03-29] MEDS: NSS 1000 IV ×2 (02:47→14:49)
[2024-03-29] MEDS: FLAGYL 500 MG 100 IV ×3 (05:13→21:31)
[2024-03-29] MEDS: SYNTHROID 75 MCG PO (05:16)
[2024-03-29 07:20] VITALS: BP 144/73
[2024-03-29] MEDS: PROTONIX IV 40 MG IV (08:58)
[2024-03-29] MEDS: NSS (PRESERVATIVE FREE) 10 ML IV (08:58)
[2024-03-29] MEDS: ZESTRIL 10 MG PO (08:59)
--- NOTE | 2024-03-29 10:56 | W.PN.CRS1 ---
Today's Communication / Plan
-
continue NGT
I/S
lozenge/spray for NGT irritation
Assessment/Plan
-
58 yo male who is POD # 3 ex lap with Ines's procedure due to perforated sigmoid diverticulitis
Last fever was around time of surgery, currently AFVSS
Labs still pending today
Await bowel function: NGT with bilious outputs, total output 450ml
--NPO with NGT to suction until ROBF
--IVF as per medicine team
--Multimodal analgesics, hold NSAIDs d/t renal function
--Stoma nurse consulted for ostomy teaching, okay to change midline dressing during colostomy change
--C/W IV ABX, Wound cx with gnb, final results pending
--Follow labs, still pending this AM
--IV protonix 40mg for GI ppx
--Heparin sq and SCD's for VTE ppx
--I/S
Subjective Data
Procedure
Exploratory laparotomy, sigmoidectomy and end colostomy (Ines's procedure)
Subjective Data
Date of Service: March 29, 2024
Patient states it feels like he has gas in his lower pelvic area. He feels bloated at this point. He is not that hungry. His pain has decreased. The NG tube is in place and is bothering his throat.
Objective Data
-
Vital Signs
Temp Pulse Resp BP Pulse Ox
98.6 F 72 16 144/73 96
03/29/24 07:20 03/29/24 08:59 03/29/24 07:20 03/29/24 08:59 03/29/24 07:20
Intake & Output
03/28/24 03/29/24 03/30/24
06:59 06:59 06:59
Intake Total 1380 / 1380 2970 / 2970
Output Total 2375 / 2375 2200 / 2200 225 / 225
Balance -995 / -995 770 / 770 -225 / -225
Intake:
Oral fluids 370 / 370
IV fluids (Total) 1100 / 1100 2450 / 2450
IV piggybacks 100 / 100 50 / 50
Amount instilled into GI Tube ( 180 / 180 100 / 100
Total)
[place] Sump 180 / 180 100 / 100
Output:
Gastrointestinal tube output ( 900 / 900 450 / 450
Total)
[place] Sump 900 / 900 450 / 450
Urine, Heart 625 / 625
Urine, Voided 850 / 850 1750 / 1750 225 / 225
Other:
Number of approximated MODERATE 1
amounts of urine
Physical Exam
-
General: No Acute Distress and AOx3
Abdomen: Soft, Distended (Mild), Non Tender and Other (Warm and pink, no bowel function yet)
Skin: Warm and Dry
Wound: Dressing in Place
[2024-03-29 11:10] LABS: Hemoglobin 10.6 g/dL (13.0-18.0); Mean Corp Hgb Conc. 33.1 g/dL (33.0-37.0); Mean Corpuscular Hgb 26.6 pg (27.0-31.0); Mean Corpuscular Volume 80.2 fL (80.0-94.0); Mean Platelet Volume 10.4 fL (7.4-10.4); Platelet Count 175 10^3/uL (130-400); Red Blood Cell Count 3.99 10^6/uL (4.70-6.10)
[2024-03-29 11:43] LABS: Blood Urea Nitrogen 22 mg/dl (9-20); Calcium 8.2 mg/dl (8.4-10.2); Carbon Dioxide 21 mmol/L (22-30); Chloride 108 mmol/L (98-107); Estimated Creatinine Clearance 87 ml/min; Glucose 78 mg/dl (70-99); Magnesium 2.2 mg/dl (1.6-2.3); Potassium 4.1 mmol/L (3.5-5.1); Sodium 137 mmol/L (135-145); eGFR > 60.00
--- NOTE | 2024-03-29 11:50 | W.PN.HOSP.TC ---
Addendum entered and electronically signed by Yuliet Deluca MD 03/29/24 14:25:
# Acute diverticulitis with perforation with severe sepsis
s/p colectomy with colostomy by CRS
Cont IV Levofloxacin and IV metronidazole.
Cont NPO with NGT.
DVT ppx with HSQ
PPI for GI protection
Eventual C-scope within the next 6 to 8 weeks
# Resolved prerenal MIGUEL
Cont NSS 100 cc/hr
resumed [employer] ACE[employer]
# Resolved Hyponatremia
Original Note:
Today's Communication/Plan
-
N.p.o., NG tube with suction.
Continue IV maintenance fluids
Continue antibiotics.
Reassess in the a.m. tomorrow.
Assessment / Plan
Assessment / Plan
Assessment-
58-year-old male PMH of hypothyroidism, hypertension, diverticulosis/diverticulitis 10 years ago presenting with left lower quadrant pain and emesis.
Plan -
Severe sepsis -
Likely from purulent peritonitis secondary to extraluminal perforation of diverticulitis.
SIRS criteria plus elevated lactic acid levels, repeat lactic acid levels yesterday did not result
Ordered a repeat lactic acid levels today. Follow-up lactic acid levels for sepsis resolution
Currently patient is afebrile, WBC trending down, leukocytosis improving, tachycardia and tachypnea resolved.
Preliminary wound culture for abdominal fluids has gram-negative bacilli
Pending final cultures. Follow-up on cultures.
Severe acute diverticulitis with extraluminal perforation and purulent peritonitis.
S/p exploratory laparotomy with Brower's procedure, POD #3
Colostomy-minimal drainage, currently on voiding trial.
Continue IV fluid support and bowel rest. NG tube clamping per surgery recommendations.
Levaquin and Flagyl-day 4, leukocytosis improving.
Zofran for nausea and Dilaudid for pain as needed.
Patient was febrile upon admission, currently remains afebrile.
Continue monitoring temperature curve
Leukocytosis
Likely secondary to peritonitis, WBC peaked to 23, currently WBC trending down-03/29-.
Continue antibiotics.
Continue to trend CBC.
MIGUEL-
Prerenal azotemia secondary to purulent peritonitis and diverticulitis.
Improving with IV fluids, currently Sr.Cr-1.4.
Continue IV hydration and continue to trend renal function.
Avoid nephrotoxic agents,
Hypothyroidism
Continue levothyroxine
Essential hypertension
Continue lisinopril
continue to monitor
Full code
DVT prophylaxis -on SCD.
Data reviewed
CT AP - 03/25
IMPRESSION: As described, CT findings compatible with severe diverticulitis.
Adjacent to the sigmoid colon in the pelvis, there is an extraluminal collection which is predominantly air, with no significant fluid component. This would be compatible with contained extraluminal perforation. No evidence for free air elsewhere
within the abdomen or pelvis.
There is a small to moderate amount of free fluid within the pelvis bilaterally and also within the pelvic cul-de-sac, likely reactive fluid.
1 cm low-density lesions within the spleen, likely a small cyst or hemangioma. This is very likely a benign lesion for which no further imaging follow-up is recommended.
Minimal posterior right pleural effusion. Trace amount of posterior left pleural fluid. Atelectasis within the lower lungs.
Cholelithiasis. No CT findings to suggest acute cholecystitis.
Bilateral fat-containing inguinal hernias, and appears indirect on the left and direct on the right, larger on the left. There is also a small amount of fluid extending into the left inguinal hernia.
Anticipated Discharge: > 48 hours
Subjective/Interval History
-
Date of Service: March 29, 2024
Patient is comfortable, denies having appetite, nausea, abdominal pain, SOB.
no bowel movements yet, did not notice
Objective Data
-
Labs:
Laboratory Results
03/29/24
10:16
WBC 14.0 H
Hgb 10.6 L
Hct 32.0 L
Plt Count 175
Sodium 137
Potassium 4.1
Chloride 108 H
Carbon Dioxide 21 L
BUN 22 H
Creatinine 1.1
Glucose 78
Calcium 8.2 L
Vital Signs:
Vital Signs
Temp Pulse Resp BP Pulse Ox
98.6 F 72 16 144/73 96
03/29/24 07:20 03/29/24 08:59 03/29/24 07:20 03/29/24 08:59 03/29/24 09:00
I&O
03/28/24 03/29/24 03/30/24
06:59 06:59 06:59
Intake Total 1380 / 1380 2970 / 2970
Output Total 2375 / 2375 2200 / 2200 225 / 225
Balance -995 / -995 770 / 770 -225 / -225
Physical Exam
-
General: No Apparent Distress, Comfortable and Other (NG tube present,)
HEENT: Normocephalic, Atraumatic and Moist Mucous Membranes
Respiratory: Clear to Auscultation; Negative Wheezes, Rales, Rhonchi or Crackles
Cardiac: Regular Rhythm and S1/S2; Negative Murmur, Rub or Gallop
GI: Soft, Nontender, Nondistended, Ostomy (No output noted) and Other (Wound dressing intact, clean. no erythema, edema or tenderness at wound dressing.)
Genito-urinary: No Costovertebral Tender
Musculoskeletal: No Clubbing, No Cyanosis and No Edema
Skin: Warm
Neuro: AO x 3
Psych: Calm
[2024-03-29] MEDS: ANESTHETIC LOZENGE 1 LOZENGE PO ×2 (11:51→22:59)
--- NOTE | 2024-03-29 14:30 | WOUNDNOTE ---
TASHI RN note: Patient s/p ostomy surgery
See H&P for complete history.
PMH: Diverticulitis, renal calculi/stones, HTN, R Achilles repair.
Ostomy location and type: Colostomy, Ines's for perforated diverticulitis.
Instructed patient ostomy pouch emptying and changing appliance using Soha wafer # [id number]
Soha pouch # [id number], Leticia at bedside, both participated with care.
Ostomy supplies ordered from [facility] and at bedside.
Note to case management: [facility] services recommended for ostomy teaching.
Nursing care plan updated, will follow as needed.
[2024-03-29 15:00] VITALS: BP 153/79
--- NOTE | 2024-03-29 15:08 | WOUNDNOTE ---
TASHI RN NOTE ADDENDUM: Midline dressing removed and applied dry gauze dressing per surgeon, bryan in place. Stoma is flat and 1 1/4' oval shape, dark red, peristomal skin intact. Small amt of gas patient reports and about 50ml of drainage in pouch.
Permission given by patient to enroll in secure start program, samples ordered to be sent to home.
--- NOTE | 2024-03-29 15:46 | CM ---
IV/AB, NPO, NGT. Anticipate discharge to home with [facility] services when medically stable.
[2024-03-29] MEDS: NSS (PRESERVATIVE FREE) IV (20:35)
[2024-03-29 22:20] VITALS: BP 153/76
[2024-03-29] MEDS: LEVAQUIN 150 IV (22:53)
[2024-03-30] MEDS: NSS IV (03:09)
[2024-03-30] MEDS: NSS 1000 IV ×2 (03:11→12:53)
[2024-03-30] MEDS: SYNTHROID 75 MCG PO (05:00)
[2024-03-30] MEDS: FLAGYL 500 MG 100 IV ×3 (05:00→21:39)
[2024-03-30 07:00] VITALS: BP 145/69
[2024-03-30 07:05] LABS: % Basophils 0.3 % (0-2); % Eosinophils 0.7 % (0-6); % Lymphocytes 10.2 % (20.5-51.1); % Monocytes 9.1 % (1.7-9.3); % Neutrophils 75.7 % (42.2-75.2); Absolute Eosinophils 0.1 10^3/uL (0-0.7); Absolute Immature Granulocytes 0.5 10^3/uL (0-0.05); Absolute Lymphocytes 1.2 10^3/uL (1.2-3.4); Absolute Monocytes 1.1 10^3/uL (0.1-0.6); Absolute Neutrophils 9.1 10^3/uL (1.4-6.5); Hematocrit 30.6 % (39.0-52.0); Hemoglobin 9.9 g/dL (13.0-18.0); Mean Corp Hgb Conc. 32.4 g/dL (33.0-37.0); Mean Corpuscular Volume 80.3 fL (80.0-94.0); Mean Platelet Volume 9.7 fL (7.4-10.4); Nucleated Red Blood Cells % 0 % (-); Platelet Count 160 10^3/uL (130-400); Red Blood Cell Count 3.81 10^6/uL (4.70-6.10)
[2024-03-30 07:10] LABS: Blood Urea Nitrogen 21 mg/dl (9-20); Carbon Dioxide 21 mmol/L (22-30); Chloride 110 mmol/L (98-107); Estimated Creatinine Clearance 87 ml/min; Glucose 78 mg/dl (70-99); Potassium 3.9 mmol/L (3.5-5.1); Sodium 139 mmol/L (135-145); eGFR > 60.00
[2024-03-30] MEDS: NSS (PRESERVATIVE FREE) 10 ML IV (08:48)
[2024-03-30] MEDS: ZESTRIL 10 MG PO (08:49)
[2024-03-30] MEDS: HEPARIN 5000 UNITS SC (08:49)
[2024-03-30] MEDS: PROTONIX IV 40 MG IV (08:49)
--- NOTE | 2024-03-30 09:49 | W.PN.HOSP.TC ---
Addendum entered and electronically signed by Yuliet Deluca MD 03/30/24 11:11:
A/P:
# Acute diverticulitis with bowel perforation and severe sepsis
s/p colectomy with colostomy by CRS 03/26/2024
Cont IV Levofloxacin and IV metronidazole.
Cont NPO with NGT, await bowel function
DVT ppx with Lovenox SQ
PPI for GI protection
Eventual C-scope within the next 6 to 8 weeks
# Resolved prerenal MIGUEL
Cont NSS 100 cc/hr with current NPO status
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
# Resolved Hyponatremia
Full code
DVT prophylaxis: Lovenox SQ
Original Note:
Today's Communication/Plan
-
Await return of bowel function
Update Surgery if bowel function returns.
Continue current medical management.
Assessment / Plan
Assessment / Plan
Assessment-
58-year-old male PMH of hypothyroidism, hypertension, diverticulosis/diverticulitis 10 years ago presenting with left lower quadrant pain and emesis.
Plan -
Severe sepsis -
Likely from purulent peritonitis secondary to extraluminal perforation of diverticulitis.
SIRS criteria plus elevated lactic acid levels, repeat lactic acid levels yesterday did not result
Ordered a repeat lactic acid levels today. Follow-up lactic acid levels for sepsis resolution
Currently patient is afebrile, WBC trending down, leukocytosis improving, tachycardia and tachypnea resolved.
Preliminary wound culture for abdominal fluids has gram-negative bacilli
Pending final cultures. Follow-up on cultures.
Severe acute diverticulitis with extraluminal perforation and purulent peritonitis.
S/p exploratory laparotomy with Brower's procedure, POD #4
Colostomy-minimal drainage, currently on voiding trial.
Continue IV fluid support and bowel rest. NG tube clamping per surgery recommendations.
Levaquin and Flagyl-day 5, leukocytosis improving.
Zofran for nausea and Dilaudid for pain as needed.
Patient was febrile upon admission, currently remains afebrile.
Continue monitoring temperature curve
Leukocytosis
Likely secondary to peritonitis, WBC peaked to 23, currently WBC trending down-03/29-14.
Continue antibiotics.
Continue to trend CBC.
Microcytic anemia -
Likely dilutional, but Iron deficiency work up ordered.
Follow up with labs and reassess in the am tomorrow.
MIGUEL-
Prerenal azotemia secondary to purulent peritonitis and diverticulitis.
Improving with IV fluids, currently Sr.Cr-1.4.
Continue IV hydration and continue to trend renal function.
Avoid nephrotoxic agents,
Hypothyroidism
Continue levothyroxine
Essential hypertension
Continue lisinopril
continue to monitor
Full code
DVT prophylaxis -on SCD.
Data reviewed
CT AP - 03/25
IMPRESSION: As described, CT findings compatible with severe diverticulitis.
Adjacent to the sigmoid colon in the pelvis, there is an extraluminal collection which is predominantly air, with no significant fluid component. This would be compatible with contained extraluminal perforation. No evidence for free air elsewhere
within the abdomen or pelvis.
There is a small to moderate amount of free fluid within the pelvis bilaterally and also within the pelvic cul-de-sac, likely reactive fluid.
1 cm low-density lesions within the spleen, likely a small cyst or hemangioma. This is very likely a benign lesion for which no further imaging follow-up is recommended.
Minimal posterior right pleural effusion. Trace amount of posterior left pleural fluid. Atelectasis within the lower lungs.
Cholelithiasis. No CT findings to suggest acute cholecystitis.
Bilateral fat-containing inguinal hernias, and appears indirect on the left and direct on the right, larger on the left. There is also a small amount of fluid extending into the left inguinal hernia.
Anticipated Discharge: Today
Subjective/Interval History
-
Date of Service: March 30, 2024
No complaints overnight. continues to remain on NG tube suction.
NPO
Objective Data
-
Labs:
Laboratory Results
03/30/24
05:44
WBC 12.0 H
Hgb 9.9 L
Hct 30.6 L
Plt Count 160
Sodium 139
Potassium 3.9
Chloride 110 H
Carbon Dioxide 21 L
BUN 21 H
Creatinine 1.1
Glucose 78
Calcium 8.0 L
Vital Signs:
Vital Signs
Temp Pulse Resp BP Pulse Ox
99.4 F 68 16 145/69 99
03/30/24 07:00 03/30/24 08:49 03/30/24 07:00 03/30/24 08:49 03/30/24 07:00
I&O
03/29/24 03/30/24 03/31/24
06:59 06:59 06:59
Intake Total 2970 / 2970 2580 / 2580
Output Total 2200 / 2200 2825 / 2825
Balance 770 / 770 -245 / -245
Physical Exam
-
General: No Apparent Distress and Comfortable
HEENT: Normocephalic, Atraumatic and Moist Mucous Membranes
Respiratory: Clear to Auscultation; Negative Wheezes, Rales or Rhonchi
Cardiac: Regular Rhythm and S1/S2; Negative Murmur, Rub or Gallop
GI: Soft, Nontender, Nondistended, Ostomy (mild bilious stained output noted) and Other (diminished bowel sounds, wound dressing intact)
Musculoskeletal: No Clubbing, No Cyanosis and No Edema
Neuro: AO x 3
Psych: Calm
Data Reviewed
-
Labs: Labs Reviewed by me and Discussed with Physician
--- NOTE | 2024-03-30 09:53 | W.PN.CRS1 ---
Today's Communication / Plan
-
await bowel function
continue abx (will review cultures with pharm ID)
Assessment/Plan
-
58 yo male who is POD # 4 ex lap with Ines's procedure due to perforated sigmoid diverticulitis
Last fever was around time of surgery, currently AFVSS
WBC 12.0 from 14.0
Await bowel function: NGT with bilious outputs, total output 800ml
--NPO with NGT to suction until ROBF
--IVF as per medicine team
--Multimodal analgesics, hold NSAIDs d/t renal function
--Stoma nurse consulted for ostomy teaching
--C/W IV ABX (levaquin/flagyl), Wound cx with e.coli, will discuss with pharm ID
--IV protonix 40mg for GI ppx
--Heparin sq and SCD's for VTE ppx
--I/S
Subjective Data
Procedure
Exploratory laparotomy, sigmoidectomy and end colostomy (Ines's procedure)
Subjective Data
Date of Service: March 30, 2024
Patient states he feels well. His main complaint is that he is unable to sleep to the NG tube. He denies nausea or vomiting. He states he feels like he has a 'gas bubble' in his abdomen. He is less bloated. He has no pain.
Objective Data
-
Vital Signs
Temp Pulse Resp BP Pulse Ox
99.4 F 68 16 145/69 99
03/30/24 07:00 03/30/24 08:49 03/30/24 07:00 03/30/24 08:49 03/30/24 07:00
Intake & Output
03/29/24 03/30/24 03/31/24
06:59 06:59 06:59
Intake Total 2970 / 2970 2580 / 2580
Output Total 2200 / 2200 2825 / 282
Balance 770 / 770 -245 / -245
Intake:
Oral fluids 370 / 370
IV fluids (Total) 2450 / 2450 1950 / 1949
IV piggybacks 50 / 50 450 / 450
Amount instilled into GI Tube ( 100 / 100 180 / 180
Total)
[place] Sump 100 / 100 180 / 180
Output:
Gastrointestinal tube output ( 450 / 450 800 / 800
Total)
[place] Sump 450 / 450 800 / 800
Urine, Voided 175 / [id number]
Other:
Number of approximated MODERATE 1
amounts of urine
Lab Results
03/30/24 05:44
03/30/24 05:44
Physical Exam
-
General: No Acute Distress and AOx3
Abdomen: Soft, Non Distended and Non Tender
Skin: Warm and Dry
[2024-03-30 10:34] LABS: Total Iron Binding Capacity 173 ug/dl (261-462)
[2024-03-30 10:49] LABS: Iron < 20 ug/dl (49-181)
[2024-03-30 12:53] VITALS: BMI 30.5
[2024-03-30] MEDS: ANCEF 10 IV ×2 (14:36→21:39)
[2024-03-30 15:40] VITALS: BP 150/80
[2024-03-30] MEDS: LOVENOX 40 MG SC (17:10)
--- NOTE | 2024-03-30 17:22 | CM ---
IV/AB, NGT, NPO. Discharge Plan of Care: Home with [facility] services. ? IV/AB at home.
[2024-03-30] MEDS: NSS (PRESERVATIVE FREE) IV (20:39)
[2024-03-30] MEDS: MELATONIN 3 MG PO (21:39)
--- NOTE | 2024-03-30 22:07 | PTCARENOTE ---
Pt requesting to sit in chair. Pt assisted OOB to chair without difficulty. Right Nare NGT in place to suction draining clear green drainage. Placement confirmed and flushed per MD order. Pt reports some occasional abd cramping, denies the need for
pain medication at this time. Midline abd dressing c/d/i. left lower abd colostomy with scant soft stool at this time. Right hand int infusing NSS@100ml/hr as ordered. No issues to report at this time. Will continue to monitor.
[2024-03-30 22:49] VITALS: BP 144/77
[2024-03-31] MEDS: NSS 1000 IV ×3 (00:17→23:03)
--- NOTE | 2024-03-31 03:56 | DOWNTIME ---
There was a [employer] Downtime on 03/31/2024 from 0100 to 03/31/2024 at 0252. Downtime documentation of patient's care, including medication administrations, has been reconciled in the electronic record per guidelines. Refer to the
patient's paper chart under the miscellaneous tab to see printed paper medication records and downtime forms.
[2024-03-31] MEDS: SYNTHROID 75 MCG PO (05:00)
[2024-03-31] MEDS: FLAGYL 500 MG 100 IV ×3 (05:00→21:07)
[2024-03-31] MEDS: ANCEF 10 IV ×3 (05:00→21:07)
[2024-03-31 07:10] VITALS: BP 132/76
[2024-03-31] MEDS: PROTONIX IV 40 MG IV (07:44)
[2024-03-31] MEDS: ZESTRIL 10 MG PO (07:44)
[2024-03-31] MEDS: NSS (PRESERVATIVE FREE) 10 ML IV (07:44)
[2024-03-31 08:46] LABS: Hematocrit 32.5 % (39.0-52.0); Hemoglobin 10.6 g/dL (13.0-18.0); Mean Corp Hgb Conc. 32.6 g/dL (33.0-37.0); Mean Corpuscular Hgb 26.2 pg (27.0-31.0); Mean Corpuscular Volume 80.2 fL (80.0-94.0); Platelet Count 218 10^3/uL (130-400); Red Blood Cell Count 4.05 10^6/uL (4.70-6.10); Red Cell Dist. Width 14.9 % (11.5-14.5)
[2024-03-31 08:50] VITALS: BMI 30.5
[2024-03-31 09:32] LABS: % Basophils 0.5 % (0-2); % Immature Granulocytes 8.2 % (0-0.5); % Lymphocytes 10.1 % (20.5-51.1); % Monocytes 9.8 % (1.7-9.3); % Neutrophils 70.4 % (42.2-75.2); Absolute Basophils 0.1 10^3/uL (0-0.2); Absolute Eosinophils 0.1 10^3/uL (0-0.7); Absolute Immature Granulocytes 1.1 10^3/uL (0-0.05); Absolute Lymphocytes 1.3 10^3/uL (1.2-3.4); Absolute Monocytes 1.3 10^3/uL (0.1-0.6); Absolute Neutrophils 9.2 10^3/uL (1.4-6.5); Nucleated Red Blood Cells % 0 % (-)
[2024-03-31 09:44] LABS: Blood Urea Nitrogen 19 mg/dl (9-20); Calcium 8.3 mg/dl (8.4-10.2); Carbon Dioxide 25 mmol/L (22-30); Chloride 109 mmol/L (98-107); Estimated Creatinine Clearance 80 ml/min; Glucose 81 mg/dl (70-99); Potassium 3.8 mmol/L (3.5-5.1); Sodium 139 mmol/L (135-145); eGFR > 60.00
--- NOTE | 2024-03-31 10:48 | W.PN.CRS1 ---
Today's Communication / Plan
-
ngt clamping trial
continue abx
Assessment/Plan
-
58 yo male who is POD #5 ex lap with Ines's procedure due to perforated sigmoid diverticulitis
Last fever was around time of surgery, currently AFVSS
WBC 13.0
NGT output 400ml
--NGT clamping trial. If removed, NPO with sips/chips.
--IVF as per medicine team
--Multimodal analgesics, hold NSAIDs d/t renal function
--Stoma nurse consulted for ostomy teaching
--Continue IV abx: cephazolin/flagyl
--IV protonix 40mg for GI ppx
--Heparin sq and SCD's for VTE ppx
--I/S
Subjective Data
Procedure
Exploratory laparotomy, sigmoidectomy and end colostomy (Ines's procedure)
Subjective Data
Date of Service: March 31, 2024
Patient states he is having bowel movements in his stoma. He has flatus. He denies nausea. The NG tube is still bothering him. His pain is controlled.
Objective Data
-
Vital Signs
Temp Pulse Resp BP Pulse Ox
97.6 F 64 16 149/71 95
03/31/24 07:10 03/31/24 07:44 03/31/24 07:10 03/31/24 07:44 03/31/24 07:10
Intake & Output
03/30/24 03/31/24 04/01/24
06:59 06:59 06:59
Intake Total 2580 / 2580 2750 / 2750
Output Total 2825 / 2825 1400 / 1400
Balance -245 / -245 1350 / 1350
Intake:
IV fluids (Total) 1950 / 1950 2400 / 2400
IV piggybacks 450 / 450 200 / 200
Amount instilled into GI Tube ( 180 / 180 150 / 150
Total)
[place] Sump 180 / 180 150 / 150
Output:
Gastrointestinal tube output ( 800 / 800 400 / 400
Total)
[place] Sump 800 / 800 400 / 400
Urine, Voided 2024 / 2024 1000 / 1000
Other:
Number of approximated MODERATE 2
amounts of urine
Lab Results
03/31/24 07:28
03/31/24 08:45
Physical Exam
-
General: No Acute Distress and AOx3
Abdomen: Soft, Non Distended, Non Tender and Other (colostomy warm and pink with flatus and BMS)
Skin: Warm and Dry
Incision: Clear, Dry, Intact
--- NOTE | 2024-03-31 11:30 | WOUNDNOTE ---
WON RN NOTE: Leakage starting underneath wafer distally. Appliance changed with patient doing most of it, just guided wafer over stoma. Stoma still red/maroon and flush, peristomal skin slightly pink. Today used soft convex wafer # [id number] with paste
and drainable pouch. Midline abdominal dressing changed, small amt of serosanguineous drainage on dressing. Chyna remain in place with nahum. Called [facility] for 4 additional 2 1/4' pouches. Brought to bedside 4 additional convex wafers that are #
[id number], firmer convex wafers and belt. Teaching done with patient and at bedside regarding the above. Support and encouragement given. Will have DELISA Hernandez follow up within next few days to assess if leaking.
--- NOTE | 2024-03-31 11:52 | W.PN.HOSP.TC ---
Addendum entered and electronically signed by Isabel Mason MD, Resident 04/01/24 11:19:
Microcytic anemia -
Iron deficiency anemia, Recommend outpateint follow up. Currently patient is having return of bowel function, and starting patient on Iron may cause constipation. Will recommend oral iron supplementation after discharge.
Addendum entered and electronically signed by Yuliet Deluca MD 03/31/24 12:07:
A/P:
# Acute diverticulitis with bowel perforation and severe sepsis
s/p colectomy with colostomy by CRS 03/26/2024
Wound culture from the OR grew E. coli, resistant to Cipro
Changed IV Levofloxacin to Ancef , continue IV metronidazole.
Cont NPO with NGT (now clamped)
DVT ppx with Lovenox SQ
PPI for GI protection
Eventual C-scope within the next 6 to 8 weeks
# Resolved prerenal MIGUEL
Cont NSS 100 cc/hr with current NPO status
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
# Resolved Hyponatremia
Full code
DVT prophylaxis: Lovenox SQ
Original Note:
Today's Communication/Plan
-
NG tube clamping trial.
Continue antibiotics
Follow white blood cell count
Advance diet based on surgery.
Assessment / Plan
Assessment / Plan
Assessment-
58-year-old male H of hypothyroidism, hypertension, diverticulosis/diverticulitis 10 years ago presenting with left lower quadrant pain and emesis.
Plan -
Severe sepsis -
Likely from purulent peritonitis secondary to extraluminal perforation of diverticulitis.
SIRS criteria plus elevated lactic acid levels, repeat lactic acid levels yesterday did not result
Ordered a repeat lactic acid levels today. Follow-up lactic acid levels for sepsis resolution
Currently patient is afebrile, WBC trending down, leukocytosis improving, currently stable leukocytosis. Tachycardia and tachypnea resolved.
Preliminary wound culture for abdominal fluids has gram-negative bacilli
E. coli positive, resistant to fluoroquinolones. Switch patient to Unasyn.
Severe acute diverticulitis with extraluminal perforation and purulent peritonitis.
S/p exploratory laparotomy with Brower's procedure, POD #5
Colostomy-minimal drainage, currently on voiding trial.
Continue IV fluid support and bowel rest. NG tube clamping trial per surgery recommendations.
Unasyn day 2 and Flagyl-day 5, leukocytosis improving.
Zofran for nausea and Dilaudid for pain as needed.
Patient was febrile upon admission, currently remains afebrile.
Continue monitoring temperature curve
Leukocytosis
Likely secondary to peritonitis, WBC peaked to 23, currently WBC trending down-03/29-14.
Continue antibiotics.
Continue to trend CBC.
Microcytic anemia -
Likely dilutional, but Iron deficiency work up ordered.
Follow up with labs and reassess in the am tomorrow.
MIGUEL-
Prerenal azotemia secondary to purulent peritonitis and diverticulitis.
Improving with IV fluids, currently Sr.Cr-1.4.
Continue IV hydration and continue to trend renal function.
Avoid nephrotoxic agents,
Hypothyroidism
Continue levothyroxine
Essential hypertension
Continue lisinopril
continue to monitor
Full code
DVT prophylaxis -on SCD.
Data reviewed
CT AP - 03/25
IMPRESSION: As described, CT findings compatible with severe diverticulitis.
Adjacent to the sigmoid colon in the pelvis, there is an extraluminal collection which is predominantly air, with no significant fluid component. This would be compatible with contained extraluminal perforation. No evidence for free air elsewhere
within the abdomen or pelvis.
There is a small to moderate amount of free fluid within the pelvis bilaterally and also within the pelvic cul-de-sac, likely reactive fluid.
1 cm low-density lesions within the spleen, likely a small cyst or hemangioma. This is very likely a benign lesion for which no further imaging follow-up is recommended.
Minimal posterior right pleural effusion. Trace amount of posterior left pleural fluid. Atelectasis within the lower lungs.
Cholelithiasis. No CT findings to suggest acute cholecystitis.
Bilateral fat-containing inguinal hernias, and appears indirect on the left and direct on the right, larger on the left. There is also a small amount of fluid extending into the left inguinal hernia.
Anticipated Discharge: 24 - 48 hours
Subjective/Interval History
-
Date of Service: March 31, 2024
Patient reports having a huge bowel movement yesterday in the evening.
Off of NG tube suction for 2 hours yesterday.
Currently on NG tube clamp trial.
Denies having symptoms.
Objective Data
-
Labs:
Laboratory Results
03/31/24 03/31/24
07:28 08:45
WBC 13.0 H
Hgb 10.6 L
Hct 32.5 L
Plt Count 218 D
Sodium 139
Potassium 3.8
Chloride 109 H
Carbon Dioxide 25
BUN 19
Creatinine 1.2
Glucose 81
Calcium 8.3 L
Vital Signs:
Vital Signs
Temp Pulse Resp BP Pulse Ox
97.6 F 64 16 149/71 95
03/31/24 07:10 03/31/24 07:44 03/31/24 07:10 03/31/24 07:44 03/31/24 07:10
I&O
03/30/24 03/31/24 04/01/24
06:59 06:59 06:59
Intake Total 2580 / 2580 2750 / 2750
Output Total 2825 / 2825 1400 / 1400
Balance -245 / -245 1350 / 1350
Review of Systems
-
History Source: Patient
Constitutional: Reports No Symptoms
Respiratory: Reports No Symptoms
Cardiac: Reports No Symptoms
Abdomen/GI: Reports No Symptoms
Genitourinary: Reports No Symptoms
Musculoskeletal: Reports No Symptoms
Skin: Reports No Symptoms
Neuro: Reports No Symptoms
Endocrine: Reports No Symptoms
Hematologic / Lymphatic: Reports No Symptoms
Physical Exam
-
General: No Apparent Distress and Comfortable
HEENT: Normocephalic, Atraumatic and Moist Mucous Membranes
Respiratory: Clear to Auscultation; Negative Wheezes, Rales or Rhonchi
Cardiac: Regular Rhythm and S1/S2; Negative Murmur, Rub or Gallop
GI: Soft, Nontender (Mild tenderness.), Nondistended and Normal Bowel Sounds
Musculoskeletal: No Clubbing, No Cyanosis and No Edema
Skin: Warm
Neuro: AO x 3
Psych: Calm
--- NOTE | 2024-03-31 14:10 | PTCARENOTE ---
NG tube removed at 1400 due to patient having 10 cc of residual after 6 hours of being clamped and patient denying pain, nausea, vomiting or distention. Care ongoing at this time.
[2024-03-31 14:40] VITALS: BP 159/79
--- NOTE | 2024-03-31 15:25 | PN.CDI ---
CDI
- -
CDI:
Physician Documentation Request
Admit Date: 03/25/24 21:42
Dear Doctor Marlon,
Please review the following and provide your response in the progress notes.
Clinical Indicators:
PN, 03/31
#Severe acute diverticulitis with extraluminal perforation and purulent peritonitis.
#...S/p exploratory laparotomy with Brower's procedure, POD #5
#Microcytic anemia -
#Likely dilutional, but Iron deficiency work up ordered.
Laboratory Tests
03/25/24 03/26/24 03/27/24
16 08:01 06:02
Hgb 14.9 13.4 12.8 L
03/28/24 03/29/24 03/30/24
08:07 10:16 05:44
Hgb 10.8 L 10.6 L 9.9 L
03/31/24
07:28
Hgb 10.6 L
Based on the above, please clarify, in the progress note, the most likely type of anemia evaluated, monitored and/or treated?
Acute blood loss anemia
Microcytic anemia
Acute blood loss anemia with baseline chronic iron deficiency anemia
Chronic iron deficiency anemia due to blood loss
Other (please specify)
Use of terms such as suspected, likely, concern for, or probable (associated with a specific diagnosis that is being evaluated, monitored, or treated as if it exists) are acceptable and can be coded in the inpatient setting, when documented at the
time of discharge.
Thank you,
Brittany Mendez RN BSN CCDS
CDI Specialist
please contact via tiger text
Please use your independent medical judgment in providing your response.
--- NOTE | 2024-03-31 16:40 | CM ---
IV/AB, NGT clamp trial, ostomy teaching. Discharge Plan of Care: Home with [facility]. Need to determine if home with IV/AB.
[2024-03-31] MEDS: LOVENOX 40 MG SC (17:22)
[2024-03-31] MEDS: NSS (PRESERVATIVE FREE) IV (21:06)
[2024-03-31] MEDS: MELATONIN 3 MG PO (21:07)
[2024-03-31 23:05] VITALS: BP 146/76
[2024-04-01 03:08] LABS: Transferrin 118 mg/dL (200-360)
[2024-04-01] MEDS: FLAGYL 500 MG 100 IV ×3 (06:07→21:48)
[2024-04-01] MEDS: SYNTHROID 75 MCG PO (06:07)
[2024-04-01] MEDS: ANCEF 10 IV ×3 (06:07→21:46)
--- NOTE | 2024-04-01 06:38 | PTCARENOTE ---
Pt slept well overnight. Pt ambulating in the hallway this am. Pt now sitting up in chair. Pt tolerating sips/chips and no complaints of nausea post NGT removal. Pt hopeful to start diet today. Pt is self managing colostomy without issues. IVF
infusing as ordered. Will continue to monitor.
[2024-04-01 07:00] VITALS: BP 166/79
--- NOTE | 2024-04-01 07:14 | W.PN.HOSP.TC ---
Addendum entered and electronically signed by Yuliet Deluca MD 04/01/24 10:29:
A/P:
# Acute diverticulitis with bowel perforation and severe sepsis
s/p colectomy with colostomy by CRS 03/26/2024
Wound culture from the OR grew E. coli, resistant to Cipro
Changed IV Levofloxacin to Ancef, continue IV metronidazole.
Off NGT
CLD per CRS
DVT ppx with Lovenox SQ
PPI for GI protection
Eventual C-scope within the next 6 to 8 weeks
# Resolved prerenal MIGUEL
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
# Resolved Hyponatremia
Full code
DVT prophylaxis: Lovenox SQ
Original Note:
Today's Communication/Plan
-
.
Assessment / Plan
Assessment / Plan
Assessment-
58-year-old male PMH of hypothyroidism, hypertension, diverticulosis/diverticulitis 10 years ago presenting with left lower quadrant pain and emesis.
Plan -
Severe sepsis -
Likely from purulent peritonitis secondary to extraluminal perforation of diverticulitis.
SIRS criteria plus elevated lactic acid levels, repeat lactic acid levels yesterday did not result
Ordered a repeat lactic acid levels today. Follow-up lactic acid levels for sepsis resolution
Currently patient is afebrile, WBC trending down, leukocytosis improving, currently stable leukocytosis. Tachycardia and tachypnea resolved.
Preliminary wound culture for abdominal fluids has gram-negative bacilli
E. coli positive, resistant to fluoroquinolones. Continue IV Ancef and IV metronidazole
NGT removed. Pt placed on clear liquid diet.
Continue PPI
C-scope within the next 6 to 8 weeks
Severe acute diverticulitis with extraluminal perforation and purulent peritonitis.
S/p exploratory laparotomy with Brower's procedure, POD #5
Colostomy-minimal drainage, currently on voiding trial.
Continue IV fluid support and bowel rest. NG tube clamping trial per surgery recommendations.
Continue IV Ancef and IV metronidazole
Zofran for nausea and Dilaudid for pain as needed.
Patient was febrile upon admission, currently remains afebrile.
Continue monitoring temperature curve
Leukocytosis
Likely secondary to peritonitis, WBC peaked to 23, currently WBC trending down-03/29-14.
Continue antibiotics.
Continue to trend CBC.
Microcytic anemia -
Likely dilutional, but Iron deficiency work up ordered.
Iron <20, TIBC 173, Transferrin 118
MIGUEL-
Prerenal azotemia secondary to purulent peritonitis and diverticulitis.
Improving with IV fluids
Continue IV hydration and continue to trend renal function.
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
Hypothyroidism
Continue levothyroxine
Essential hypertension
Continue lisinopril
continue to monitor
Full code
DVT prophylaxis -Lovenox subcu
Data reviewed
CT AP - 03/25
IMPRESSION: As described, CT findings compatible with severe diverticulitis.
Adjacent to the sigmoid colon in the pelvis, there is an extraluminal collection which is predominantly air, with no significant fluid component. This would be compatible with contained extraluminal perforation. No evidence for free air elsewhere
within the abdomen or pelvis.
There is a small to moderate amount of free fluid within the pelvis bilaterally and also within the pelvic cul-de-sac, likely reactive fluid.
1 cm low-density lesions within the spleen, likely a small cyst or hemangioma. This is very likely a benign lesion for which no further imaging follow-up is recommended.
Minimal posterior right pleural effusion. Trace amount of posterior left pleural fluid. Atelectasis within the lower lungs.
Cholelithiasis. No CT findings to suggest acute cholecystitis.
Bilateral fat-containing inguinal hernias, and appears indirect on the left and direct on the right, larger on the left. There is also a small amount of fluid extending into the left inguinal hernia.
Anticipated Discharge: 24 - 48 hours
Subjective/Interval History
-
Date of Service: April 01, 2024
Patient reports having a good night overnight. He is passing gas, especially when ambulating. He reports no headaches, NV, CP, SOB, or swelling in legs. He reports mild pain when having a bowel movement. Currently NPO, but states he has an appetite.
Objective Data
-
Labs:
Laboratory Results
04/01/24 04/01/24
06:00 08:00
WBC Pending
Hgb Pending
Hct Pending
Plt Count Pending
Sodium Pending
Potassium Pending
Chloride Pending
Carbon Dioxide Pending
BUN Pending
Creatinine Pending
Glucose Pending
Calcium Pending
Vital Signs:
Vital Signs
Temp Pulse Resp BP Pulse Ox
99.6 F 69 20 146/76 98
03/31/24 23:05 03/31/24 23:05 03/31/24 23:05 03/31/24 23:05 03/31/24 23:05
I&O
03/31/24 04/01/24 04/02/24
06:59 06:59 06:59
Intake Total 2750 / 2750 3260 / 3260
Output Total 1400 / 1400 200 / 200
Balance 1350 / 1350 3060 / 3060
Review of Systems
-
History Source: Patient
Constitutional: Reports No Symptoms
EENT: Reports No Symptoms Reported
Respiratory: Reports No Symptoms
Cardiac: Reports No Symptoms
Abdomen/GI: Reports Abdominal Pain and Bloated
Genitourinary: Reports No Symptoms
Musculoskeletal: Reports No Symptoms
Physical Exam
-
General: Well Developed, Well Nourished, No Apparent Distress, Comfortable and Conversant
HEENT: Normocephalic and Atraumatic
GI: Soft, Nontender, Nondistended and Ostomy
Musculoskeletal: No Clubbing, No Cyanosis and No Edema
Skin: Warm and Dry
Neuro: AO x 3
Psych: Calm
Data Reviewed
-
Labs: Labs Reviewed by me and Discussed with Physician
Old Records: Reviewed
[2024-04-01 08:23] LABS: Hemoglobin 10.6 g/dL (13.0-18.0); Mean Corp Hgb Conc. 33.1 g/dL (33.0-37.0); Mean Corpuscular Hgb 27.1 pg (27.0-31.0); Mean Corpuscular Volume 81.8 fL (80.0-94.0); Mean Platelet Volume 9.7 fL (7.4-10.4); Platelet Count 246 10^3/uL (130-400); Red Blood Cell Count 3.91 10^6/uL (4.70-6.10); Red Cell Dist. Width 15.1 % (11.5-14.5); White Blood Cell Count 13.4 10^3/uL (4.8-10.8)
[2024-04-01] MEDS: NSS (PRESERVATIVE FREE) 10 ML IV (08:33)
[2024-04-01] MEDS: ZESTRIL 10 MG PO (08:33)
[2024-04-01] MEDS: PROTONIX IV 40 MG IV (08:33)
[2024-04-01 08:48] LABS: Blood Urea Nitrogen 16 mg/dl (9-20); Calcium 8.3 mg/dl (8.4-10.2); Carbon Dioxide 23 mmol/L (22-30); Chloride 109 mmol/L (98-107); Estimated Creatinine Clearance 87 ml/min; Glucose 80 mg/dl (70-99); Potassium 4.1 mmol/L (3.5-5.1); Sodium 142 mmol/L (135-145); eGFR > 60.00
[2024-04-01 09:06] LABS: % Basophils 0.5 % (0-2); % Eosinophils 1.2 % (0-6); % Immature Granulocytes 9.5 % (0-0.5); % Lymphocytes 10.1 % (20.5-51.1); % Monocytes 7.7 % (1.7-9.3); Absolute Basophils 0.1 10^3/uL (0-0.2); Absolute Eosinophils 0.2 10^3/uL (0-0.7); Absolute Immature Granulocytes 1.3 10^3/uL (0-0.05); Absolute Lymphocytes 1.4 10^3/uL (1.2-3.4); Absolute Neutrophils 9.5 10^3/uL (1.4-6.5); Nucleated Red Blood Cells % 0 % (-)
[2024-04-01] MEDS: NSS 1000 IV ×2 (10:33→21:46)
--- NOTE | 2024-04-01 11:05 | W.PN.CRS1 ---
Today's Communication / Plan
-
clears
Assessment/Plan
-
58 yo male who is POD # 6 ex lap with Ines's procedure due to perforated sigmoid diverticulitis
Last fever was around time of surgery, currently AFVSS
WBC 13.4
--Advance diet to clears.
--IVF as per medicine team
--Multimodal analgesics, hold NSAIDs d/t renal function
--Stoma nurse consulted for ostomy teaching
--Continue IV abx: cephazolin/flagyl
--IV protonix 40mg for GI ppx
--Heparin sq and SCD's for VTE ppx
--I/S
Subjective Data
Procedure
Exploratory laparotomy, sigmoidectomy and end colostomy (Ines's procedure)
Subjective Data
Date of Service: April 01, 2024
Patient states he has no nausea or vomiting. His pain is controlled. He is very hungry. He is overall doing well. He is walking the hallways.
Objective Data
-
Vital Signs
Temp Pulse Resp BP Pulse Ox
98.7 F 69 16 166/79 98
04/01/24 07:00 04/01/24 08:33 04/01/24 07:00 04/01/24 08:33 04/01/24 07:00
Intake & Output
03/31/24 04/01/24 04/02/24
06:59 06:59 06:59
Intake Total 2750 / 2750 3260 / 3260
Output Total 1400 / 1400 200 / 200
Balance 1350 / 1350 3060 / 3060
Intake:
Oral fluids 560 / 560
IV fluids (Total) 2400 / 2400 2400 / 2400
IV piggybacks 200 / 200 300 / 300
Amount instilled into GI Tube ( 150 / 150
Total)
Kay Sump 150 / 150
Output:
Gastrointestinal tube output ( 400 / 400
Total)
Kay Sump 400 / 400
Urine, Voided 1000 / 1000 200 / 200
Other:
Number of approximated MODERATE 2 1
amounts of urine
Lab Results
04/01/24 07:51
04/01/24 07:51
Physical Exam
-
General: No Acute Distress and AOx3
Abdomen: Soft, Non Distended, Non Tender and Other (Colostomy warm and pink with function)
Skin: Warm and Dry
Wound: Dressing Changed
Incision: Clear, Dry, Intact
[2024-04-01] MEDS: ANESTHETIC LOZENGE 1 LOZENGE PO (14:07)
[2024-04-01 15:00] VITALS: BP 157/85
--- NOTE | 2024-04-01 15:36 | WOUNDNOTE ---
WOC RN NOTE: Visited patient to follow up on ostomy appliance. Ostomy is not leaking and patient states he has been emptying. Also reviewed where he can get supplies after discharge. More pouches ordered and are at bedside. Patient made aware he can
follow up with VN or WOC RN if ostomy problems arise after discharge. Will continue to follow as needed.
[2024-04-01] MEDS: LOVENOX 40 MG SC (18:40)
[2024-04-01] MEDS: NSS (PRESERVATIVE FREE) IV (21:43)
[2024-04-01] MEDS: MELATONIN 3 MG PO (21:47)
[2024-04-01] MEDS: FLUSH (NSS) 3 FLUSH IV (21:48)
[2024-04-01 23:29] VITALS: BP 167/89
[2024-04-02 03:14] VITALS: BP 166/85
[2024-04-02] MEDS: ANCEF 10 IV ×3 (05:31→21:32)
[2024-04-02] MEDS: FLAGYL 500 MG 100 IV ×3 (05:37→21:33)
[2024-04-02] MEDS: SYNTHROID 75 MCG PO (05:37)
[2024-04-02 05:48] VITALS: BP 149/81
[2024-04-02 07:05] VITALS: BP 156/89
--- NOTE | 2024-04-02 07:33 | W.PN.HOSP.TC ---
Addendum entered and electronically signed by Yuliet Deluca MD 04/02/24 11:43:
A/P:
# Acute diverticulitis with bowel perforation and severe sepsis
s/p colectomy with colostomy by CRS 03/26/2024
Wound culture from the OR grew E. coli, resistant to Cipro
Changed IV Levofloxacin to Ancef, continue IV metronidazole.
Off NGT
CLD advanced to low residue diet per CRS
DVT ppx with Lovenox SQ
PPI for GI protection
Eventual C-scope within the next 6 to 8 weeks
# Resolved prerenal MIGUEL
resumed FINANCIAL ASSISTANT ACEI
# Resolved Hyponatremia
Full code
DVT prophylaxis: Lovenox SQ
Original Note:
Today's Communication/Plan
-
.
Assessment / Plan
Assessment / Plan
Assessment-
58-year-old male PMH of hypothyroidism, hypertension, diverticulosis/diverticulitis 10 years ago presenting with left lower quadrant pain and emesis.
Plan -
Severe sepsis -
Likely from purulent peritonitis secondary to extraluminal perforation of diverticulitis.
SIRS criteria plus elevated lactic acid levels, repeat lactic acid levels yesterday did not result
Ordered a repeat lactic acid levels today. Follow-up lactic acid levels for sepsis resolution
Currently patient is afebrile, WBC trending down, leukocytosis improving, currently stable leukocytosis. Tachycardia and tachypnea resolved.
Preliminary wound culture for abdominal fluids has gram-negative bacilli
E. coli positive, resistant to fluoroquinolones. Continue IV Ancef and IV metronidazole
NGT removed. Pt advanced to low residue.
Lactose intolerant, CRS added Lactaid
Continue PPI
C-scope within the next 6 to 8 weeks
Severe acute diverticulitis with extraluminal perforation and purulent peritonitis.
S/p exploratory laparotomy with Brower's procedure, POD #5
Colostomy-minimal drainage, currently on voiding trial.
Continue IV fluid support and bowel rest. NG tube clamping trial per surgery recommendations.
Continue IV Ancef and IV metronidazole
Zofran for nausea and Dilaudid for pain as needed.
Patient was febrile upon admission, currently remains afebrile.
Continue monitoring temperature curve
Leukocytosis
Likely secondary to peritonitis, WBC peaked to 23, currently WBC trending down-03/29-14.
Continue antibiotics.
Continue to trend CBC.
Microcytic anemia -
Likely dilutional, but Iron deficiency work up ordered.
Iron <20, TIBC 173, Transferrin 118
MIGUEL-
Prerenal azotemia secondary to purulent peritonitis and diverticulitis.
Improving with IV fluids
Continue IV hydration and continue to trend renal function.
Avoid nephrotoxic agents, resume FINANCIAL ASSISTANT and NONI inhibitor
Hypothyroidism
Continue levothyroxine
Essential hypertension
Continue lisinopril
continue to monitor
Full code
DVT prophylaxis -Lovenox subcu
Data reviewed
CT AP - 03/25
IMPRESSION: As described, CT findings compatible with severe diverticulitis.
Adjacent to the sigmoid colon in the pelvis, there is an extraluminal collection which is predominantly air, with no significant fluid component. This would be compatible with contained extraluminal perforation. No evidence for free air elsewhere
within the abdomen or pelvis.
There is a small to moderate amount of free fluid within the pelvis bilaterally and also within the pelvic cul-de-sac, likely reactive fluid.
1 cm low-density lesions within the spleen, likely a small cyst or hemangioma. This is very likely a benign lesion for which no further imaging follow-up is recommended.
Minimal posterior right pleural effusion. Trace amount of posterior left pleural fluid. Atelectasis within the lower lungs.
Cholelithiasis. No CT findings to suggest acute cholecystitis.
Bilateral fat-containing inguinal hernias, and appears indirect on the left and direct on the right, larger on the left. There is also a small amount of fluid extending into the left inguinal hernia.
Anticipated Discharge: 24 - 48 hours
Subjective/Interval History
-
Date of Service: April 02, 2024
Patient had a good night. Tolerated clear liquid diet well. Continues to ambulate and states he has no severe pain
Objective Data
-
Labs:
Laboratory Results
04/02/24 04/02/24
06:00 08:00
WBC Pending
Hgb Pending
Hct Pending
Plt Count Pending
Sodium Pending
Potassium Pending
Chloride Pending
Carbon Dioxide Pending
BUN Pending
Creatinine Pending
Glucose Pending
Calcium Pending
Vital Signs:
Vital Signs
Temp Pulse Resp BP Pulse Ox
98.4 F 74 18 149/81 99
04/01/24 23:29 04/02/24 05:48 04/01/24 23:29 04/02/24 05:48 04/01/24 23:29
I&O
04/01/24 04/02/24 04/03/24
06:59 06:59 06:59
Intake Total 3260 / 3260 1720 / 1720
Output Total 200 / 200 375 / 375
Balance 3060 / 3060 1345 / 1345
Review of Systems
-
History Source: Patient
All other systems: Reviewed and negative
Abdomen/GI: Reports Other (mild cramping)
Physical Exam
-
General: Well Developed, Well Nourished and No Apparent Distress
HEENT: Normocephalic and Atraumatic
GI: Soft, Nontender, Nondistended and Ostomy
Musculoskeletal: No Clubbing, No Cyanosis and No Edema
Skin: Warm and Dry
Neuro: AO x 3
Psych: Calm
[2024-04-02] MEDS: ZESTRIL 10 MG PO (07:56)
[2024-04-02] MEDS: PROTONIX IV 40 MG IV (07:56)
[2024-04-02] MEDS: NSS (PRESERVATIVE FREE) 10 ML IV (07:56)
--- NOTE | 2024-04-02 09:56 | W.PN.CRS1 ---
Today's Communication / Plan
-
low residue
Assessment/Plan
-
58 yo male who is POD #7 ex lap with Ines's procedure due to perforated sigmoid diverticulitis
Last fever was around time of surgery, currently AFVSS
WBC 15.7 from 13.4
--Advance diet to low residue.
--IVF as per medicine team
--Multimodal analgesics, hold NSAIDs d/t renal function
--Stoma nurse consulted for ostomy teaching
--Continue IV abx: cephazolin/flagyl
--IV protonix 40mg for GI ppx
--Heparin sq and SCD's for VTE ppx
--I/S
-- Case management for visiting nurse
-- Patient is lactose intolerant, will add lactaid PRN
Subjective Data
Procedure
Exploratory laparotomy, sigmoidectomy and end colostomy (Ines's procedure)
Subjective Data
Date of Service: April 02, 2024
Patient states he feels well today. He has been pain control. He generally has no complaints.
Objective Data
-
Vital Signs
Temp Pulse Resp BP Pulse Ox
98.9 F 76 18 147/85 96
04/02/24 07:05 04/02/24 07:56 04/02/24 07:05 04/02/24 07:56 04/02/24 07:05
Intake & Output
04/01/24 04/02/24 04/03/24
06:59 06:59 06:59
Intake Total 3260 / 3260 1720 / 1720
Output Total 200 / 200 375 / 375
Balance 3060 / 3060 1345 / 1345
Intake:
Oral fluids 560 / 560 420 / 420
IV fluids (Total) 2400 / 2400 1000 / 1000
IV piggybacks 300 / 300 300 / 300
Output:
Urine, Voided 200 / 200 375 / 375
Other:
Number of approximated MODERATE 1 1
amounts of urine
Physical Exam
-
General: No Acute Distress and AOx3
Abdomen: Soft, Non Distended, Non Tender and Other (colostomy warm and pink with output)
Skin: Warm and Dry
Incision: Clear, Dry, Intact
[2024-04-02 09:57] LABS: Hematocrit 32.7 % (39.0-52.0); Hemoglobin 10.6 g/dL (13.0-18.0); Mean Corp Hgb Conc. 32.4 g/dL (33.0-37.0); Mean Corpuscular Hgb 26.2 pg (27.0-31.0); Mean Corpuscular Volume 80.7 fL (80.0-94.0); Mean Platelet Volume 9.5 fL (7.4-10.4); Platelet Count 324 10^3/uL (130-400); Red Blood Cell Count 4.05 10^6/uL (4.70-6.10); White Blood Cell Count 15.7 10^3/uL (4.8-10.8)
[2024-04-02 10:17] LABS: % Basophils 0.4 % (0-2); % Immature Granulocytes 7.5 % (0-0.5); % Lymphocytes 8.7 % (20.5-51.1); % Neutrophils 76.4 % (42.2-75.2); Absolute Basophils 0.1 10^3/uL (0-0.2); Absolute Eosinophils 0.2 10^3/uL (0-0.7); Absolute Immature Granulocytes 1.2 10^3/uL (0-0.05); Absolute Lymphocytes 1.4 10^3/uL (1.2-3.4); Absolute Monocytes 0.9 10^3/uL (0.1-0.6); Nucleated Red Blood Cells % 0 % (-)
[2024-04-02 10:31] LABS: Blood Urea Nitrogen 12 mg/dl (9-20); Carbon Dioxide 26 mmol/L (22-30); Chloride 104 mmol/L (98-107); Estimated Creatinine Clearance 107 ml/min; Glucose 96 mg/dl (70-99); Potassium 3.8 mmol/L (3.5-5.1); Sodium 140 mmol/L (135-145); eGFR > 60.00
--- NOTE | 2024-04-02 14:50 | CM ---
Addendum entered by Stephani Kong 04/02/24 14:59:
Met with patient at bedside to discuss discharge planning
Patient agreeable to home health services/VN
CM consult completed; referral sent to [facility] for VN
Original Note:
chart reviewed; Anticipated discharge 24-48 hours
CM will monitor for discharge needs
[2024-04-02 15:05] VITALS: BP 151/75
[2024-04-02] MEDS: LOVENOX 40 MG SC (17:12)
[2024-04-02] MEDS: NSS (PRESERVATIVE FREE) IV (22:38)
[2024-04-02 23:15] VITALS: BP 107/70
[2024-04-02] MEDS: MELATONIN PO (23:35)
[2024-04-03] MEDS: FLAGYL 500 MG 100 IV ×3 (06:13→21:47)
[2024-04-03] MEDS: ANCEF 10 IV (06:13)
[2024-04-03] MEDS: SYNTHROID 75 MCG PO (06:13)
[2024-04-03 07:29] LABS: Blood Urea Nitrogen 8 mg/dl (9-20); Calcium 8.4 mg/dl (8.4-10.2); Carbon Dioxide 28 mmol/L (22-30); Chloride 104 mmol/L (98-107); Estimated Creatinine Clearance 96 ml/min; Glucose 94 mg/dl (70-99); Potassium 3.9 mmol/L (3.5-5.1); Sodium 141 mmol/L (135-145); eGFR > 60.00
[2024-04-03] MEDS: NSS (PRESERVATIVE FREE) 10 ML IV (07:56)
[2024-04-03] MEDS: ZESTRIL 10 MG PO (07:57)
[2024-04-03] MEDS: PROTONIX IV 40 MG IV (07:57)
[2024-04-03 08:02] LABS: Hemoglobin 10.4 g/dL (13.0-18.0); Mean Corp Hgb Conc. 32.5 g/dL (33.0-37.0); Mean Corpuscular Hgb 26.5 pg (27.0-31.0); Mean Corpuscular Volume 81.6 fL (80.0-94.0); Mean Platelet Volume 9.6 fL (7.4-10.4); Platelet Count 326 10^3/uL (130-400); Red Blood Cell Count 3.92 10^6/uL (4.70-6.10); Red Cell Dist. Width 14.8 % (11.5-14.5); White Blood Cell Count 17.4 10^3/uL (4.8-10.8)
--- NOTE | 2024-04-03 08:52 | W.PN.CRS1 ---
Addendum entered and electronically signed by Shashank Laguerre MD 04/03/24 15:02:
I saw and examined the patient independently.
The Cottonseed Meat Presser's note was reviewed and I agree with the note, assessment and plan except where noted below.
Comment: 58-year-old male postoperative day 8 from a open Brower's procedure for perforated diverticulitis. Overall clinically improving however increasing leukocytosis
CT scan abdomen pelvis with p.o. and IV contrast demonstrated multiple abscesses, will consult IR for percutaneous drainage.
Continue IV antibiotics.
Routine stoma care.
Out of bed and ambulate.
Plan of care reviewed with patient and family, all questions answered. Patient agreeable to plan of care above.
Original Note:
Today's Communication / Plan
-
CT abd/pelvis and check UA
Assessment/Plan
-
58 yo male who is POD #8 ex lap with Ines's procedure due to perforated sigmoid diverticulitis
Last fever was around time of surgery, currently AFVSS
WBC continues to rise
Tolerating diet with good bowel function
--Infectious work up: Check CT abd/pelvis with po/iv contrast. Check UA
--Continue LRD/low lactose
--Multimodal analgesics
--Stoma nurse consulted for ostomy
--Continue IV abx: change cefazolin to cipro for broader/anaerobic coverage and continue flagyl
--IV protonix 40mg for GI ppx
--Heparin sq and SCD's for VTE ppx
--I/S while awake
-- Case management for visiting nurse
Subjective Data
Procedure
Exploratory laparotomy, sigmoidectomy and end colostomy (Ines's procedure)
Subjective Data
Date of Service: April 03, 2024
Patient seen and examined at bedside with Dr. Laguerre. Denies pain to abdomen. Some swelling to tip of penis. No n/v. Tolerating diet. +flatus/stool from stoma.
Objective Data
-
Vital Signs
Temp Pulse Resp BP Pulse Ox
98.8 F 64 16 107/70 99
04/02/24 23:15 04/02/24 23:15 04/02/24 23:15 04/02/24 23:15 04/02/24 23:15
Intake & Output
04/02/24 04/03/24 04/04/24
06:59 06:59 06:59
Intake Total 1720 / 1720 1360 / 1360
Output Total 375 / 375 475 / 475
Balance 1345 / 1345 885 / 885
Intake:
Oral fluids 420 / 420 1050 / 1050
IV fluids (Total) 1000 / 1000
IV piggybacks 300 / 300 310 / 310
Output:
Urine, Voided 375 / 375 475 / 475
Other:
Number of approximated MODERATE 1
amounts of urine
Lab Results
04/03/24 05:53
04/03/24 06:28
Physical Exam
-
General: No Acute Distress
HEENT: Grossly Normal
Abdomen: Soft, Non Distended, Non Tender, Bowel Movement (stool/flatus in ostomy appliance. stoma pink/viable), Flatus and Other (penis with mild edema to tip at childs site)
Skin: Warm and Dry
Wound: Other (Staple line intact, mild pinpoint erythema/irritation at insertion site of each staple but no surrounding erythema or drainage)
[2024-04-03 09:08] LABS: % Basophils 0.4 % (0-2); % Immature Granulocytes 5.2 % (0-0.5); % Lymphocytes 11.4 % (20.5-51.1); % Monocytes 6.4 % (1.7-9.3); % Neutrophils 75.6 % (42.2-75.2); Absolute Basophils 0.1 10^3/uL (0-0.2); Absolute Eosinophils 0.2 10^3/uL (0-0.7); Absolute Immature Granulocytes 0.9 10^3/uL (0-0.05); Absolute Monocytes 1.1 10^3/uL (0.1-0.6); Absolute Neutrophils 13.1 10^3/uL (1.4-6.5); Nucleated Red Blood Cells % 0 % (-)
[2024-04-03] MEDS: OMNIPAQUE 50 ML PO (09:16)
[2024-04-03 11:00] LABS: Urine Albumin Negative (Neg - Trace); Urine Bilirubin Negative (Negative); Urine Character Clear (Clear); Urine Color Yellow; Urine Glucose Negative (Negative); Urine Ketone Trace (Negative); Urine Leukocyte Trace (Negative); Urine Nitrite Negative (Negative); Urine Occult Blood Negative (Negative); Urine Urobilinogen Negative (Neg - 1+)
--- NOTE | 2024-04-03 11:27 | W.PN.HOSP.TC ---
Today's Communication/Plan
-
see A/P
Assessment / Plan
Assessment / Plan
A/P:
# Acute diverticulitis with bowel perforation and severe sepsis
s/p colectomy with colostomy by CRS 03/26/2024
Wound culture from the OR grew E. coli, resistant to Cipro
IV Levofloxacin was changed to Ancef due to E coli resistance, Ancef now changed to cefepime
continue IV metronidazole.
Off NGT , diet advanced to low residue
Check CT abd/pelvis and UA due to persistent leucocytosis
DVT ppx with Lovenox SQ
PPI for GI protection
Eventual C-scope within the next 6 to 8 weeks
# Resolved prerenal MIGUEL
resumed DIE LAY OUT WORKER ACEI
# Resolved Hyponatremia
Full code
DVT prophylaxis: Lovenox SQ
Anticipated Discharge: 24 - 48 hours
Subjective/Interval History
-
Date of Service: April 03, 2024
Objective Data
-
Labs:
Laboratory Results
04/03/24 04/03/24
05:53 06:28
WBC 17.4 H
Hgb 10.4 L
Hct 32.0 L
Plt Count 326
Sodium 141
Potassium 3.9
Chloride 104
Carbon Dioxide 28
BUN 8 L
Creatinine 1.0
Glucose 94
Calcium 8.4
Vital Signs:
Vital Signs
Temp Pulse Resp BP Pulse Ox
37.1 C 64 16 107/70 99
04/02/24 23:15 04/02/24 23:15 04/02/24 23:15 04/02/24 23:15 04/02/24 23:15
I&O
04/02/24 04/03/24 04/04/24
06:59 06:59 06:59
Intake Total 1720 / 1720 1360 / 1360
Output Total 375 / 375 475 / 475
Balance 1345 / 1345 885 / 885
Review of Systems
-
History Source: Patient
All other systems: Reviewed and negative
Physical Exam
-
General: Well Developed, Well Nourished, No Apparent Distress and Comfortable
HEENT: Normocephalic and Atraumatic
GI: Soft, Nontender, Nondistended and Ostomy
Musculoskeletal: No Clubbing, No Cyanosis and No Edema
Skin: Warm and Dry
Neuro: Awake and Alert
Psych: Calm and Intact Judgement/Insight
Data Reviewed
-
Labs: Labs Reviewed by me
[2024-04-03 11:41] LABS: Urine Mucus Few
[2024-04-03 11:42] LABS: Urine Amorphous Seen
[2024-04-03 11:43] LABS: Urine Red Blood Cell 0-2 /HPF (0-2); Urine Urothelial Cell 0-2 /LPF (FEW); Urine White Cell 0-2 /HPF (0-5)
[2024-04-03] MEDS: STERILE WATER FOR INJECTION 10 ML IV ×2 (12:33→17:28)
[2024-04-03] MEDS: MAXIPIME 1000 MG IV ×2 (12:33→17:28)
[2024-04-03 15:57] VITALS: BP 130/79
[2024-04-03] MEDS: LOVENOX 40 MG SC (17:28)
[2024-04-03 23:30] VITALS: BP 138/72
[2024-04-03] MEDS: MELATONIN PO (23:33)
[2024-04-04] MEDS: MAXIPIME 1000 MG IV ×3 (02:50→17:11)
[2024-04-04] MEDS: STERILE WATER FOR INJECTION 10 ML IV ×3 (02:51→17:15)
[2024-04-04] MEDS: SYNTHROID 75 MCG PO (05:09)
[2024-04-04] MEDS: FLAGYL 500 MG 100 IV ×3 (05:09→21:18)
[2024-04-04 05:53] LABS: % Basophils 0.3 % (0-2); % Eosinophils 0.7 % (0-6); % Immature Granulocytes 4.2 % (0-0.5); % Lymphocytes 9.3 % (20.5-51.1); % Monocytes 5.7 % (1.7-9.3); % Neutrophils 79.8 % (42.2-75.2); Absolute Basophils 0.1 10^3/uL (0-0.2); Absolute Eosinophils 0.1 10^3/uL (0-0.7); Absolute Immature Granulocytes 0.7 10^3/uL (0-0.05); Absolute Lymphocytes 1.5 10^3/uL (1.2-3.4); Absolute Neutrophils 13.3 10^3/uL (1.4-6.5); Hematocrit 31.2 % (39.0-52.0); Hemoglobin 10.2 g/dL (13.0-18.0); Mean Corp Hgb Conc. 32.7 g/dL (33.0-37.0); Mean Corpuscular Hgb 26.7 pg (27.0-31.0); Mean Corpuscular Volume 81.7 fL (80.0-94.0); Mean Platelet Volume 9.3 fL (7.4-10.4); Nucleated Red Blood Cells % 0 % (-); Platelet Count 345 10^3/uL (130-400); Red Blood Cell Count 3.82 10^6/uL (4.70-6.10); Red Cell Dist. Width 14.6 % (11.5-14.5); White Blood Cell Count 16.6 10^3/uL (4.8-10.8)
[2024-04-04 06:18] LABS: Blood Urea Nitrogen 9 mg/dl (9-20); Calcium 8.1 mg/dl (8.4-10.2); Carbon Dioxide 29 mmol/L (22-30); Chloride 104 mmol/L (98-107); Estimated Creatinine Clearance 96 ml/min; Glucose 92 mg/dl (70-99); Potassium 3.8 mmol/L (3.5-5.1); Sodium 141 mmol/L (135-145); eGFR > 60.00
[2024-04-04 07:38] VITALS: BP 136/73
[2024-04-04] MEDS: NSS (PRESERVATIVE FREE) 10 ML IV (07:47)
[2024-04-04] MEDS: ZESTRIL 10 MG PO (07:47)
[2024-04-04] MEDS: PROTONIX IV 40 MG IV (07:47)
--- NOTE | 2024-04-04 10:32 | W.PN.HOSP.TC ---
Today's Communication/Plan
-
see A/P
Assessment / Plan
Assessment / Plan
A/P:
# Acute diverticulitis with bowel perforation and severe sepsis
s/p colectomy with colostomy by CRS 03/26/2024
Wound culture from the OR grew E. coli, resistant to Cipro
IV Levofloxacin was changed to Ancef due to E coli resistance, Ancef then changed to cefepime
continue IV metronidazole.
Repeat CT AP 04/03 was checked due to persistent leucocytosis, noted multiple intraabdominal abscesses
IR CS for drainage
NPO prior to IR drainage
DVT ppx with Lovenox SQ
PPI for GI protection
Eventual C-scope within the next 6 to 8 weeks
# Resolved prerenal MIGUEL
resumed [employer] ACEI
# Resolved Hyponatremia
Full code
DVT prophylaxis: Lovenox SQ
Anticipated Discharge: 24 - 48 hours
Subjective/Interval History
-
Date of Service: April 04, 2024
Objective Data
-
Labs:
Laboratory Results
04/04/24
04:54
WBC 16.6 H
Hgb 10.2 L
Hct 31.2 L
Plt Count 345
Sodium 141
Potassium 3.8
Chloride 104
Carbon Dioxide 29
BUN 9
Creatinine 1.0
Glucose 92
Calcium 8.1 L
Vital Signs:
Vital Signs
Temp Pulse Resp BP Pulse Ox
37.1 C 71 12 136/73 96
04/04/24 07:38 04/04/24 07:38 04/04/24 07:38 04/04/24 07:38 04/04/24 07:38
I&O
04/03/24 04/04/24 04/05/24
06:59 06:59 06:59
Intake Total 1360 / 1360 480 / 480
Output Total 475 / 475
Balance 885 / 885 480 / 480
Review of Systems
-
History Source: Patient
All other systems: Reviewed and negative
Physical Exam
-
General: Well Developed, Well Nourished, No Apparent Distress and Comfortable
HEENT: Normocephalic and Atraumatic
GI: Soft, Nontender, Nondistended and Ostomy
Musculoskeletal: No Clubbing, No Cyanosis and No Edema
Skin: Warm and Dry
Neuro: Awake and Alert
Psych: Calm and Intact Judgement/Insight
Data Reviewed
-
CT Scan: Report Reviewed by me and Discussed with Patient
Labs: Labs Reviewed by me
[2024-04-04 10:43] VITALS: BP 161/89; BP_SYST 70
--- NOTE | 2024-04-04 11:11 | W.PN.CRS1 ---
Addendum entered and electronically signed by Shashank Laguerre MD 04/04/24 11:23:
I saw and examined the patient independently.
The Stranding Machine Operator Helper's note was reviewed and I agree with the note, assessment and plan except where noted below.
Comment: 58-year-old male postoperative day 9 from exploratory laparotomy and Brower's procedure for perforated sigmoid diverticulitis. Increasing leukocytosis prompted a CT scan 04/04 which demonstrated several intra-abdominal abscess as, the
largest in the pelvis.
N.p.o. for IR drain placement today.
Continue IV antibiotics, will follow-up cultures.
Routine stoma care.
Continue low residue diet
Colorectal surgery will resume following this patient on Friday.
Original Note:
Today's Communication / Plan
-
IR for abscess drainage
Assessment/Plan
-
58 yo male who is POD #9 ex lap with Ines's procedure due to perforated sigmoid diverticulitis
Last fever was around time of surgery, currently AFVSS
WBC trending back down
Tolerating diet with good bowel function
CT from 04/04 with several intraabdominal abscesses
--NPO for IR drain placement today, will ask for cultures
--Continue LRD/low lactose post procedure
--Multimodal analgesics
--Stoma nurse consulted for ostomy
--Continue IV abx: continue cefepime and flagyl
--IV protonix 40mg for GI ppx
--Heparin sq and SCD's for VTE ppx
--I/S while awake
Subjective Data
Procedure
03/26/2024 Exploratory laparotomy, sigmoidectomy and end colostomy (Ines's procedure)
Subjective Data
Date of Service: April 04, 2024
Patient seen and examined at bedside with Dr. Laguerre. Denies n/v. Denies pain. Mild occasional discomfort to right pelvica area.
Objective Data
-
Vital Signs
Temp Pulse Resp BP Pulse Ox
99.1 F 70 15 161/89 97
04/04/24 10:43 04/04/24 10:43 04/04/24 10:43 04/04/24 10:43 04/04/24 10:43
Intake & Output
04/03/24 04/04/24 04/05/24
06:59 06:59 06:59
Intake Total 1360 / 1360 480 / 480
Output Total 475 / 475
Balance 885 / 885 480 / 480
Intake:
Oral fluids 1050 / 1050 480 / 480
IV piggybacks 310 / 310
Output:
Urine, Voided 475 / 475
Other:
Number of approximated MODERATE 2
amounts of urine
Lab Results
04/04/24 04:54
04/04/24 04:54
Physical Exam
-
General: No Acute Distress
HEENT: Grossly Normal
Abdomen: Soft, Non Distended, Non Tender, Bowel Movement (stool/flatus in ostomy appliance. stoma pink/viable) and Flatus
Skin: Warm and Dry
Wound: Other (Staple line intact, mild pinpoint erythema/irritation at insertion site of each staple but no surrounding erythema or drainage)
[2024-04-04 11:35] VITALS: BP 156/78; BP_SYST 72
[2024-04-04 11:40] VITALS: BP 144/78; BP_SYST 72
--- NOTE | 2024-04-04 12:01 | W.PN.UPDATE ---
Update Note
Progress Note Update
CT guided transgluteal drainage catheter placed into the pelvic collection, yielding 50 cc of bloody cloudy fluid. Not grossly purulent, sent for C+S.
[2024-04-04 15:23] VITALS: BP 123/66
[2024-04-04] MEDS: LOVENOX 40 MG SC (17:11)
[2024-04-04] MEDS: MELATONIN PO (22:44)
[2024-04-04 23:01] VITALS: BP 138/71
[2024-04-05] MEDS: MAXIPIME 1000 MG IV ×2 (02:39→09:07)
[2024-04-05] MEDS: STERILE WATER FOR INJECTION 10 ML IV ×2 (02:39→09:07)
[2024-04-05] MEDS: SYNTHROID 75 MCG PO (05:17)
[2024-04-05] MEDS: FLAGYL 500 MG 100 IV ×2 (05:17→13:28)
[2024-04-05 07:03] VITALS: BP 129/68
[2024-04-05 07:08] LABS: % Basophils 0.2 % (0-2); % Eosinophils 0.6 % (0-6); % Immature Granulocytes 2.8 % (0-0.5); % Lymphocytes 11.7 % (20.5-51.1); % Monocytes 6.2 % (1.7-9.3); % Neutrophils 78.5 % (42.2-75.2); Absolute Eosinophils 0.1 10^3/uL (0-0.7); Absolute Immature Granulocytes 0.4 10^3/uL (0-0.05); Absolute Lymphocytes 1.7 10^3/uL (1.2-3.4); Absolute Monocytes 0.9 10^3/uL (0.1-0.6); Absolute Neutrophils 11.1 10^3/uL (1.4-6.5); Hematocrit 28.1 % (39.0-52.0); Hemoglobin 9.1 g/dL (13.0-18.0); Mean Corp Hgb Conc. 32.4 g/dL (33.0-37.0); Mean Corpuscular Volume 80.3 fL (80.0-94.0); Mean Platelet Volume 9.6 fL (7.4-10.4); Nucleated Red Blood Cells % 0 % (-); Platelet Count 358 10^3/uL (130-400); Red Cell Dist. Width 15.1 % (11.5-14.5); White Blood Cell Count 14.1 10^3/uL (4.8-10.8)
[2024-04-05 07:35] LABS: Blood Urea Nitrogen 11 mg/dl (9-20); Carbon Dioxide 30 mmol/L (22-30); Chloride 103 mmol/L (98-107); Estimated Creatinine Clearance 96 ml/min; Glucose 86 mg/dl (70-99); Magnesium 2.1 mg/dl (1.6-2.3); Potassium 3.9 mmol/L (3.5-5.1); Sodium 139 mmol/L (135-145); eGFR > 60.00
[2024-04-05] MEDS: ZESTRIL 10 MG PO (07:35)
[2024-04-05] MEDS: PROTONIX IV 40 MG IV (07:36)
[2024-04-05] MEDS: NSS (PRESERVATIVE FREE) 10 ML IV (07:36)
--- NOTE | 2024-04-05 10:36 | W.PN.CRS1 ---
Today's Communication / Plan
-
As below
Assessment/Plan
-
58-year-old male with PMH of hypothyroid, HTN, recurrent diverticulitis who presents with perforated sigmoid diverticulitis
POD 10 Brower's procedure, purulent peritonitis with large perforation in sigmoid colon
S/p IR drain on 01/02 for ?pelvic abscess, 50 mL evacuated of bloody/cloudy fluid, culture sent
AFVSS
WBC 14.1 from 16.6, Hb 9.1 from 10.2, CR 1.0
� Continue low residue diet
� Continue pain control with Tylenol and Dilaudid as needed
� Continue home medication
� Continue IV cefepime and Flagyl; follow-up cultures
� Continue DVT PPx with Lovenox
� Appreciate WOCN for ostomy education and supplies
� OOB/IS
� Appreciate hospitalist
Dispo�trend WBC daily; possible DC in the next 1 to 2 days if WBC normalizes
Subjective Data
Procedure
03/26/2024 Exploratory laparotomy, sigmoidectomy and end colostomy (Ines's procedure)
Subjective Data
Date of Service: April 05, 2024
No overnight events.
Pain controlled.
Denies nausea/vomiting. Tolerating diet.
+ostomy function +voiding
Pt is OOB.
Objective Data
-
Vital Signs
Temp Pulse Resp BP Pulse Ox
99.4 F 69 16 129/68 96
04/05/24 07:03 04/05/24 07:03 04/05/24 07:03 04/05/24 07:35 04/05/24 07:03
Intake & Output
04/04/24 04/05/24 04/06/24
06:59 06:59 06:59
Intake Total 480 / 480 1440 / 1440 500 / 500
Output Total 35 / 35
Balance 480 / 480 1405 / 1405 500 / 500
Intake:
Oral fluids 480 / 480 1440 / 1440 480 / 480
IV piggybacks
Amount instilled into Drain (
Total)
Left
Output:
Drain Output (Total)
Left
Other:
Number of approximated MODERATE 2 3
amounts of urine
Lab Results
04/05/24 05:13
04/05/24 05:13
Physical Exam
-
General: No Acute Distress and AOx3
HEENT: Grossly Normal
Abdomen: Soft, Non Distended, Tender (Appropriately tender near midline incision and drain), No Guarding, No Rebound and Other (Ostomy pink; DASH 35 mL serosanguineous)
Skin: Warm and Dry
Wound: No Signs of Infection, Dressing Changed (Inferior aspect with some serosanguineous drainage and skin edges nearly completely approximated; no erythema or purulent drainage) and No Skin Erythema
--- NOTE | 2024-04-05 13:00 | CON.ID ---
Consultation
-
Date/Time Consultation Requested: 04/05/24 7:35
Date/Time Consultation Performed: 04/05/24 13:01
Requesting Provider: Dr Birch
Performing Provider: Dr Byers
Reason for Consultation: peristent white count, intraabdominal abscess
Chief Complaint / Past History
Chief Complaint
abdominal pain
History of Present Illness
Mr Leavitt is a 58 year old male with history of diverticulitis x1 who presented here 03/25 for LLQ pain which began the same day and 2 episdoes of vomiting, also chills. No diarrhea
On arrival here he was febrile to 102.1 orally, bp stable, wbc 16 initially, hgb 14.9, plt 237, L shift noted, eos were not present, cr on arrival 1.3 peaked at 1.8, normalized 03/29 to 1.1, lactic acid initially 2.5 now 0.9, t bili 1.3, ast 29, alt
21, alk phos 102. Fevers resolved after HD 2. 03/25 CT a/p with IV contrast: severe diverticulitis, extraluminal collection - predominantly air. He was initially started on levaquin 750 mg IV q24 hours and metronidazole 500 mg IV q8hr and these
continued until 03/30. 03/26 he noted that he had ongoing guarding, he was taken to the OR for ex lap, moderate purulence found throughout the abdomen, large perforation of the distal sigmoid, he udnerwent ex lap and hartmanns, procedure was
uncomplicated. A culture from the OR grew few e coli of two morphotypes and rare diptheroids. Ecoli was sensitive to tested antibiotics including cefazolin, he was switched to cefazolin on 03/30 and metronidazole was continued. 04/02 he was noted
to have increasing L shift and leukocytosis there were no fevers, 04/03 there was further increased leukocytosis and he was switched to cefepime. Cefepime has continued for the last [address] was done 04/03 showing a number of abscesses
including one pelvic collection up to 5.2 x 6.2 x 4.8 cm. IR placed a drain into the collection on 04/04, gram stain showed few wbcs and no organisms, 50 ccs of bloody, slightly cloudy fluid was noted. Subsequently there is some improvement in
leukocytosis. ID is consulted for assistance with management.
Past History
Additional Past Medical History:
hypothyroidism, hypertension, diverticulosis/diverticulitis 10 years ago
Additional Past Surgical History:
Achilles tendon surgery
Allergy History:
Penicillins Allergy (Verified 03/25/24 22:07)
Rash
Medications Reviewed: Yes
Social History
Tobacco: Non-Smoker
Alcohol: None
Drug: None
Family History
Family History: Not Pertinent
Review of Systems
Review of Systems
General: Fever
All systems: All other systems were reviewed and were negative
Vital Signs
Temp Pulse Resp BP Pulse Ox
99.4 F 69 16 129/68 96
04/05/24 07:03 04/05/24 07:03 04/05/24 07:03 04/05/24 07:35 04/05/24 07:03
Physical Exam
Physical Exam
Constitutional: No Acute Distress and Obese
Cardiovascular: Regular Rate and S1/S2; Negative Murmur or Rub
Pulmonary: Clear and Symmetric; Negative Wheezes, Rales or Rhonchi
Gastrointestinal: Soft, Non Tender, Non Distended, Normal Bowel Sounds and Other (stoma pink, some soft stool in the ostomy)
Skin: Warm and Dry; Negative Rash or Jaundice
Lines: Other (drain - opaque, serosanguinous fluid)
Lab / Diagnostic Study Results
04/05/24 05:13
04/05/24 05:13
Abs Immat Gran (auto) 0.4 10^3/uL (0-0.05) H 04/05/24 05:13
Absolute Neuts (auto) 11.1 10^3/uL (1.4-6.5) H 04/05/24 05:13
Absolute Lymphs (auto) 1.7 10^3/uL (1.2-3.4) 04/05/24 05:13
Absolute Monos (auto) 0.9 10^3/uL (0.1-0.6) H 04/05/24 05:13
Absolute Basos (auto) 0.0 10^3/uL (0-0.2) 04/05/24 05:13
Total Counted 100 03/27/24 06:02
Immature Gran % 2.8 % (0-0.5) H 04/05/24 05:13
Neutrophils % 78.5 % (42.2-75.2) H 04/05/24 05:13
Lymphocytes % 11.7 % (20.5-51.1) L 04/05/24 05:13
Monocytes % 6.2 % (1.7-9.3) 04/05/24 05:13
Eosinophils % 0.6 % (0-6) 04/05/24 05:13
Basophils % 0.2 % (0-2) 04/05/24 05:13
Abs Neuts (Manual) 14.9 10^3/uL (1.4-6.5) H 03/27/24 06:02
Segmented Neutrophils 58 % (42-75) 03/27/24 06:02
Band Neutrophils 37 % (0-3) H D 03/27/24 06:02
Lymphocytes (Manual) 4 % (20-51) L 03/27/24 06:02
PT 20.4 Sec (11.4-14.6) H 03/26/24 13:11
INR 1.76 03/26/24 13:11
Lactic Acid 0.9 mmol/L (0.7-2.0) 03/28/24 14:04
Ur Squamous Epith Cells 3-5 /LPF (Few) 04/03/24 10:01
Microbiology Results
Micro:
04/04/24 11:30 Wound Culture - Preliminary
Abscess No growth
Gram Stain - Preliminary
03/26/24 19:04 Wound Culture - Final
Abdomen Escherichia coli
Gram Stain - Final
03/26/24 19:04 Anaerobic Culture - Final
Abdomen NO ANAEROBES ISOLATED
Assessment / Plan
Intraabdominal Abscesses
Perforated sigmoid diverticulitis s/p Ines's procedure
Report of rash with penicillin
- abscess culture 04/04: gram stain negative, culture prelim no growth to date - follow
- 03/26 OR culture - E coli 2 morphologies, diptheroids
- switched to ertapenem for ease of dosing - script sent to case planner
- picc line
- plan another 4+ weeks of IV antibiotics - through 05/04
- weekly labs to be sent to my office
- esr and crp in the AM for baseline
- drain management per surgery
- follow up in clinic with repeat ct scan shortly before the visit - ordered
--- NOTE | 2024-04-05 13:20 | W.PN.HOSP.TC ---
Addendum entered and electronically signed by Scot Birch MD 04/05/24 14:10:
Diverticulitis with purulent perforation s/p colectomy with colostomy by colorectal surgery. Previously on levofloxacin and Flagyl now currently on cefepime Flagyl as he was found to have persistent white count, repeat CT abdomen pelvis
demonstrating multiple intra-abdominal abscesses. S/p IR drainage for which culture pending. Wound/abscess culture from colectomy growing E. coli that is resistant to ciprofloxacin however otherwise pansensitive. Will consult infectious diseases
as we will likely be able to transition to Augmentin but I am not sure for duration most likely will at least require 2 weeks of antibiotics. Appreciate ID's input.
-Continue colostomy care
-Colorectal surgery to remove nahum
-IR drain remains in place, follow-up culture data, follow-up with IR for drain care
Leukocytosis likely secondary to acute intra-abdominal infection. Will continue to trend white count out likely will continue to improve. Continue IV antibiotics at this time. ID to evaluate. If becomes febrile again check blood cultures.
Normocytic anemia outpatient iron panel with ferritin folate B12
Hypertension continue antihypertensives
Hypothyroidism continue levothyroxine 75 mics p.o. daily
Original Note:
Today's Communication/Plan
-
Talk to the patient and check to see how patient is feeling
Consulted with infectious disease to evaluate increased leukocyte count and abscesses found on repeat CT of the abdomen
Still awaiting the culture results from surgery
Assessment / Plan
Assessment / Plan
58-year-old male with past medical history of hypothyroidism, hypertension, recurrent diverticulitis presented presented with perforated sigmoid diverticulitis
POD 11 Brower's procedure, purulent peritonitis with large perforation and sigmoid colon
Status post IR drain on 01/02 for pelvic abscesses and 50 mL of bloody cloudy fluid evacuated
# Acute diverticulitis with bowel perforation and severe sepsis
Repeat CT AP 04/03 was checked due to persistent leucocytosis, noted multiple intraabdominal abscesses
- 50 mL of fluid drained on IR CS on 01/02 and culture sent, awaiting results
- ID was consulted on 01/03/24 , and asked to evaluate the patient for high leucocyte count and intra-abdominal abscesses seen on repeat CT scan
Pt is able to urinate/defecate
s/p colectomy with colostomy by CRS 03/26/2024
Wound culture from the OR grew E. coli, resistant to Cipro
IV Levofloxacin was changed to Ancef due to E coli resistance, Ancef then changed to cefepime
continue IV metronidazole.
DVT ppx with Lovenox SQ
PPI for GI protection
Eventual C-scope within the next 6 to 8 weeks
# Resolved prerenal MIGUEL
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
# Resolved Hyponatremia
Full code
DVT prophylaxis: Lovenox SQ
Anticipated Discharge: > 48 hours
Subjective/Interval History
-
Date of Service: April 05, 2024
Patient has no acute complaint
Objective Data
-
Labs:
Laboratory Results
04/05/24
05:13
WBC 14.1 H
Hgb 9.1 L
Hct 28.1 L
Plt Count 358
Sodium 139
Potassium 3.9
Chloride 103
Carbon Dioxide 30
BUN 11
Creatinine 1.0
Glucose 86
Calcium 8.0 L
Vital Signs:
Vital Signs
Temp Pulse Resp BP Pulse Ox
99.4 F 69 16 129/68 96
04/05/24 07:03 04/05/24 07:03 04/05/24 07:03 04/05/24 07:35 04/05/24 07:03
I&O
04/04/24 04/05/24 04/06/24
06:59 06:59 06:59
Intake Total 480 / 480 1440 / 1440 500 / 500
Output Total 35 / 35
Balance 480 / 480 1405 / 1405 500 / 500
Review of Systems
-
History Source: Patient
All other systems: Reviewed and negative
Constitutional: Reports No Symptoms
EENT: Reports No Symptoms Reported
Respiratory: Reports No Symptoms
Cardiac: Reports No Symptoms
Abdomen/GI: Reports Pain (Slight pain in the abdomen possibly from the procedure)
Breast: Reports No Symptoms
Genitourinary: Reports No Symptoms
Musculoskeletal: Reports No Symptoms
Skin: Reports No Symptoms
Neuro: Reports No Symptoms
Endocrine: Reports No Symptoms
Hematologic / Lymphatic: Reports No Symptoms
Allergy / Immunology: Reports No Symptoms
Physical Exam
-
General: Well Developed, Well Nourished, No Apparent Distress and Comfortable
HEENT: Normocephalic, Atraumatic, Moist Mucous Membranes, Nose Appears Normal and Ears Appear Normal
Respiratory: Clear to Auscultation
Cardiac: Regular Rhythm and S1/S2
GI: Soft, Nontender, Nondistended and Normal Bowel Sounds
Skin: Warm
Neuro: Awake, Alert, Oriented, AO x 3 and No Motor Deficits
Hematologic / Lymphatic: No Lymphadenopathy
Psych: Calm
Data Reviewed
-
Labs: Labs Reviewed by me and Discussed with Physician
--- NOTE | 2024-04-05 14:09 | W.PN.HOSP.TC ---
Addendum entered and electronically signed by Scot Bicrh MD 04/06/24 13:11:
please ignore this note. created by accident
Original Note:
Today's Communication/Plan
-
.
Assessment / Plan
Assessment / Plan
58-year-old male with past medical history of hypothyroidism, hypertension, recurrent diverticulitis presented presented with perforated sigmoid diverticulitis
POD 11 Brower's procedure, purulent peritonitis with large perforation and sigmoid colon
Status post IR drain on 01/02 for pelvic abscesses and 50 mL of bloody cloudy fluid evacuated
# Acute diverticulitis with bowel perforation and severe sepsis
Repeat CT AP 04/03 was checked due to persistent leucocytosis, noted multiple intraabdominal abscesses
- 50 mL of fluid drained on IR CS on 01/02 and culture sent, awaiting results
- ID was consulted on 01/03/24 , and asked to evaluate the patient for high leucocyte count and intra-abdominal abscesses seen on repeat CT scan
Pt is able to urinate/defecate
s/p colectomy with colostomy by CRS 03/26/2024
Wound culture from the OR grew E. coli, resistant to Cipro
IV Levofloxacin was changed to Ancef due to E coli resistance, Ancef then changed to cefepime
continue IV metronidazole.
DVT ppx with Lovenox SQ
PPI for GI protection
Eventual C-scope within the next 6 to 8 weeks
# Resolved prerenal MIGUEL
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
# Resolved Hyponatremia
Full code
DVT prophylaxis: Lovenox SQ
Anticipated Discharge: Within 24 hours
Subjective/Interval History
-
Date of Service: April 05, 2024
Objective Data
-
Labs:
Laboratory Results
04/05/24
05:13
WBC 14.1 H
Hgb 9.1 L
Hct 28.1 L
Plt Count 358
Sodium 139
Potassium 3.9
Chloride 103
Carbon Dioxide 30
BUN 11
Creatinine 1.0
Glucose 86
Calcium 8.0 L
Vital Signs:
Vital Signs
Temp Pulse Resp BP Pulse Ox
99.4 F 69 16 129/68 96
04/05/24 07:03 04/05/24 07:03 04/05/24 07:03 04/05/24 07:35 04/05/24 07:03
I&O
04/04/24 04/05/24 04/06/24
06:59 06:59 06:59
Intake Total 480 / 480 1440 / 1440 600 / 600
Output Total 35 / 35 10 / 10
Balance 480 / 480 1405 / 1405 590 / 590
--- NOTE | 2024-04-05 14:53 | WOUNDNOTE ---
WON RN NOTE: Appliance changed with patient assisting, answered all questions. New DASH placed 04/04 to SS, with serosanguineous drainage. Stoma today is medially flat and laterally slightly budded and pink. Small amt of dark brown stool came out of OS
when changing appliance. Peristomal skin intact. Recommend continue 2 1/4' convex wafer, paste and pouch. Wear time was 5 days. Updated nurse that appliance changed.
[2024-04-05 15:39] VITALS: BP 132/75
[2024-04-05] MEDS: INVANZ 60 MG IV (16:33)
[2024-04-05] MEDS: LOVENOX 40 MG SC (17:11)
[2024-04-05] MEDS: MELATONIN 3 MG PO (22:45)
[2024-04-05 23:10] VITALS: BP 127/77
[2024-04-06 04:21] LABS: % Basophils 0.1 % (0-2); % Eosinophils 0.8 % (0-6); % Immature Granulocytes 2.1 % (0-0.5); % Lymphocytes 12.9 % (20.5-51.1); % Monocytes 8.3 % (1.7-9.3); % Neutrophils 75.8 % (42.2-75.2); Absolute Eosinophils 0.1 10^3/uL (0-0.7); Absolute Immature Granulocytes 0.3 10^3/uL (0-0.05); Absolute Lymphocytes 1.8 10^3/uL (1.2-3.4); Absolute Monocytes 1.1 10^3/uL (0.1-0.6); Absolute Neutrophils 10.3 10^3/uL (1.4-6.5); Hematocrit 26.9 % (39.0-52.0); Hemoglobin 8.9 g/dL (13.0-18.0); Mean Corp Hgb Conc. 33.1 g/dL (33.0-37.0); Mean Corpuscular Hgb 26.6 pg (27.0-31.0); Mean Corpuscular Volume 80.3 fL (80.0-94.0); Mean Platelet Volume 9.4 fL (7.4-10.4); Nucleated Red Blood Cells % 0 % (-); Platelet Count 389 10^3/uL (130-400); Red Blood Cell Count 3.35 10^6/uL (4.70-6.10); Red Cell Dist. Width 14.9 % (11.5-14.5); White Blood Cell Count 13.6 10^3/uL (4.8-10.8)
[2024-04-06 04:44] LABS: ALT (SGPT) 18 U/L (0-50); AST (SGOT) 28 U/L (17-59); Albumin 2.7 g/dl (3.5-5.0); Alkaline Phosphatase 57 U/L (38-126); Blood Urea Nitrogen 10 mg/dl (9-20); Calcium 8.1 mg/dl (8.4-10.2); Carbon Dioxide 35 mmol/L (22-30); Chloride 104 mmol/L (98-107); Estimated Creatinine Clearance 96 ml/min; Glucose 101 mg/dl (70-99); Potassium 4.2 mmol/L (3.5-5.1); Sodium 142 mmol/L (135-145); Total Bilirubin 0.4 mg/dl (0.2-1.3); Total Protein 5.2 g/dl (6.3-8.2); eGFR > 60.00
[2024-04-06] MEDS: SYNTHROID 75 MCG PO (06:46)
[2024-04-06 07:00] VITALS: BP 120/72
[2024-04-06 07:36] LABS: Erythrocyte Sed Rate 61 mm/hour (0-20)
[2024-04-06] MEDS: ZESTRIL 10 MG PO (08:39)
[2024-04-06] MEDS: PROTONIX IV 40 MG IV (08:39)
[2024-04-06] MEDS: NSS (PRESERVATIVE FREE) 10 ML IV (08:39)
--- NOTE | 2024-04-06 10:21 | CM ---
Addendum entered by Angelina Zimmerman RN 04/06/24 15:57:
[facility] instructed pt and on IV infusion . Pt received IV abx today.
Confirmed with Roxane at [facility] pt can be seen tomorrow.
Spoke with Cm Swan supplies and meds will be delivered tomorrow to home.
Spoke with RN on floor requested he have ext line placed in IV.
Leticia aware pt is dc she is in agreement.
Spoke with pt he said he will have son Gilberto drive him home.
MD will discharge today.
PLAN Home with [facility] and [facility]
Original Note:
Pt has colostomy , DASH and needing IV antibiotics at ma.
Clinical faxed to [facility]. fax [phone].
Spoke with Leticia [phone] she is in agreement with using [facility] and [facility] for wound care .
[facility] accepted him .
Awaiting [facility] follow up .
PLAN Home with [facility] and [facility]
--- NOTE | 2024-04-06 10:45 | W.PN.CRS1 ---
Today's Communication / Plan
-
Continue antibiotics
Await WBC to normalize prior to discharge
Assessment/Plan
-
58-year-old male with PMH of hypothyroid, HTN, recurrent diverticulitis who presents with perforated sigmoid diverticulitis
POD 11 Brower's procedure, purulent peritonitis with large perforation in sigmoid colon
S/p IR drain on 01/02 for ?pelvic abscess, 50 mL evacuated of bloody/cloudy fluid, culture sent
AFVSS
WBC 13.6 from 14.1
� Continue low residue diet
� Continue pain control with Tylenol and Dilaudid as needed
� Continue IV cefepime and Flagyl; follow-up cultures
� Continue DVT PPx with Lovenox
� Appreciate [facility] for ostomy education and supplies
� OOB/IS
� Appreciate hospitalist
- Dispo�trend WBC daily; possible DC in the next 1 to 2 days if WBC normalizes. Patient will likely go home with IR drain. Will order drain study as an outpatient.
Subjective Data
Procedure
Brower's procedure
Subjective Data
Date of Service: April 06, 2024
Patient states he is feeling well. He has no complaints. He is tolerating diet. He has no nausea or vomiting. He has minimal pain. He is urinating without difficulty. He is walking the halls.
Objective Data
-
Vital Signs
Temp Pulse Resp BP Pulse Ox
98.9 F 74 12 120/72 100
04/06/24 07:00 04/06/24 08:39 04/06/24 07:00 04/06/24 08:39 04/06/24 08:45
Intake & Output
04/05/24 04/06/24 04/07/24
06:59 06:59 06:59
Intake Total 1440 / 1440 2100 / 2100
Output Total 35 / 35 610 / 610
Balance 1405 / 1405 1490 / 1490
Intake:
Oral fluids 1440 / 1440 192 / 1919
IV piggybacks 170 / 170
Amount instilled into Drain (
Total)
Left
Output:
Drain Output (Total) 35 / 35
Left 35
Urine, Voided 600 / 600
Other:
Number of approximated MODERATE 3 3
amounts of urine
Lab Results
04/06/24 04:06
04/06/24 04:06
Physical Exam
-
General: No Acute Distress and AOx3
Abdomen: Soft, Non Distended, Non Tender and Other (Colostomy warm and pink with output, IR drain with serosanguineous output)
Skin: Warm and Dry
Wound: No Signs of Infection
--- NOTE | 2024-04-06 13:12 | W.PN.UPDATE ---
Update Note
Progress Note Update
Diverticulitis with purulent perforation s/p colectomy with colostomy by colorectal surgery. Previously on levofloxacin and Flagyl now currently on cefepime Flagyl as he was found to have persistent white count, repeat CT abdomen pelvis
demonstrating multiple intra-abdominal abscesses. S/p IR drainage for which culture pending. Wound/abscess culture from colectomy growing E. coli that is resistant to ciprofloxacin however otherwise pansensitive.
-Continue colostomy care
-Colorectal surgery to remove nahum
-IR drain remains in place, follow-up culture data, follow-up with IR for drain care, will likely need drain study as an outpatient
Infectious diseases has consolidated antibiotics to ertapenem IV. PICC line placed. Per ID will need at least 4 weeks of IV antibiotics. Will need weekly CBC CMP CK. Will need outpatient repeat CT abdomen pelvis post antibiotic completion.
Leukocytosis likely secondary to acute intra-abdominal infection. Will continue to trend white count out likely will continue to improve. Continue IV antibiotics at this time. ID to evaluate. If becomes febrile again check blood cultures.
Normocytic anemia outpatient iron panel with ferritin folate B12
Hypertension continue antihypertensives
Hypothyroidism continue levothyroxine 75 mics p.o. daily
Both hospital medicine and infectious diseases believes that he can like with outpatient follow-up. However colorectal surgery at this time recommending to keep him inpatient and wait until white count normalizes.
-As white count has been improving s/p drain placement and change antibiotics by suspect he will continue to improve and can likely be able to do this at home.
-I personally messaged colorectal surgery attending and will await their final recommendations. If recommended to discharge we will plan to discharge after that.
Additionally, I spoke with Gilberto and his at bedside in length about possibility of repeat CT abdomen pelvis in 4 weeks and if there is no changes and likely will require additional drains and potentially will need to go back to the OR. They
verbalized understanding appreciated that this was a possibility. Understands that he needs to complete 4 weeks of antibiotics. Understands that there is still possibility of worsening infection.
[2024-04-06] MEDS: INVANZ 60 MG IV (13:15)
--- NOTE | 2024-04-06 13:26 | W.PN.ID1 ---
Date of Service
Date of Service: April 06, 2024
Today's Communication
stable for dc when home iV antibiotics arranged
Assessment / Plan
Intraabdominal Abscesses
Perforated sigmoid diverticulitis s/p Ines's procedure
Report of rash with penicillin
- abscess culture 04/04: gram stain negative, culture prelim no growth to date - follow
- 03/26 OR culture - E coli 2 morphologies, diptheroids
- switched to ertapenem for ease of dosing - script sent to home health care case manager
- picc line
- plan another 4+ weeks of IV antibiotics - through 05/04
- weekly labs to be sent to my office
- esr and crp in the AM for baseline
- drain management per surgery
- follow up in clinic with repeat ct scan shortly before the visit - ordered
Chief Complaint
-: Other (intraabdominal abscesses)
Subjective / Review of Systems
afebrile
bp stable
no complaints
Vital Signs / Physical Exam
Vital Signs
Vital Signs
Temp Pulse Resp BP Pulse Ox
98.9 F 74 12 120/72 100
04/06/24 07:00 04/06/24 08:39 04/06/24 07:00 04/06/24 08:39 04/06/24 08:45
Physical Exam
Constitutional: No Acute Distress
Cardiovascular: Regular Rate and S1/S2; Negative Murmur or Rub
Pulmonary: Clear and Symmetric; Negative Wheezes or Rales
Gastrointestinal: Soft, Non Tender, Non Distended and Normal Bowel Sounds
Genito-Urinary: Other (stoma pink, clean)
Skin: Warm and Dry; Negative Rash or Jaundice
Lines: PICC
Objective Data
Lab Data
Lab Results
04/06/24 04:06
04/06/24 04:06
ESR 61 mm/hour (0-20) H 04/06/24 04:06
PT 20.4 Sec (11.4-14.6) H 03/26/24 13:11
INR 1.76 03/26/24 13:11
APTT 38.9 Sec (23.4-35.0) H 03/26/24 13:11
Estimated Creat Clear 96 ml/min 04/06/24 04:06
Lactic Acid 0.9 mmol/L (0.7-2.0) 03/28/24 14:04
Total Bilirubin 0.4 mg/dl (0.2-1.3) 04/06/24 04:06
AST 28 U/L (17-59) 04/06/24 04:06
ALT 18 U/L (0-50) 04/06/24 04:06
Alkaline Phosphatase 57 U/L (38-126) 04/06/24 04:06
C-Reactive Protein 48.40 mg/L (0.0-10.00) H 04/06/24 04:06
Most recent labs reviewed.
Micro Results:
04/04/24 11:30 Wound Culture - Preliminary
Abscess No growth
Gram Stain - Preliminary
03/26/24 19:04 Wound Culture - Final
Abdomen Escherichia coli
Gram Stain - Final
03/26/24 19:04 Anaerobic Culture - Final
Abdomen NO ANAEROBES ISOLATED
Care Review
Plan reviewed with: Physician (Dr Birch - dispo)
[2024-04-06 15:00] VITALS: BP 119/71
--- NOTE | 2024-04-06 15:36 | W.PN.HOSP.TC ---
Addendum entered and electronically signed by Scot Birch MD 04/07/24 12:34:
Diverticulitis with purulent perforation s/p colectomy with colostomy by colorectal surgery. Previously on levofloxacin and Flagyl now currently on cefepime Flagyl as he was found to have persistent white count, repeat CT abdomen pelvis
demonstrating multiple intra-abdominal abscesses. S/p IR drainage for which culture pending. Wound/abscess culture from colectomy growing E. coli that is resistant to ciprofloxacin however otherwise pansensitive.
-Continue colostomy care
-Colorectal surgery to remove nahum
-IR drain remains in place, follow-up culture data, follow-up with IR for drain care, will likely need drain study as an outpatient
Infectious diseases has consolidated antibiotics to ertapenem IV. PICC line placed. Per ID will need at least 4 weeks of IV antibiotics. Will need weekly CBC CMP CK. Will need outpatient repeat CT abdomen pelvis post antibiotic completion.
Leukocytosis likely secondary to acute intra-abdominal infection. Will continue to trend white count out likely will continue to improve. Continue IV antibiotics at this time. ID to evaluate. If becomes febrile again check blood cultures.
Normocytic anemia outpatient iron panel with ferritin folate B12
Hypertension continue antihypertensives
Hypothyroidism continue levothyroxine 75 mics p.o. daily
Both hospital medicine and infectious diseases believes that he can like with outpatient follow-up. However colorectal surgery at this time recommending to keep him inpatient and wait until white count normalizes.
-As white count has been improving s/p drain placement and change antibiotics by suspect he will continue to improve and can likely be able to do this at home.
-I personally messaged colorectal surgery attending and will await their final recommendations. If recommended to discharge we will plan to discharge after that.
Additionally, I spoke with Gilberto and his at bedside in length about possibility of repeat CT abdomen pelvis in 4 weeks and if there is no changes and likely will require additional drains and potentially will need to go back to the OR. They
verbalized understanding appreciated that this was a possibility. Understands that he needs to complete 4 weeks of antibiotics. Understands that there is still possibility of worsening infection.
Original Note:
Today's Communication/Plan
-
Medication is changed to meropenem. All other antibiotics are discontinued.
Discharging patient today.
Made sure patient has recommendations for drain care
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
Home infusion nurse for IV set up at home for the antibiotics
Assessment / Plan
Assessment / Plan
58-year-old male with past medical history of hypothyroidism, hypertension, recurrent diverticulitis presented presented with perforated sigmoid diverticulitis
POD 13 Brower's procedure, purulent peritonitis with large perforation and sigmoid colon
Status post IR drain on 01/02 for pelvic abscesses and 50 mL of bloody cloudy fluid evacuated
Planning on discharging patient today to home with his , colostomy care and drainage care are provided.
PICC line placed on pts right upper arm
# Acute diverticulitis with bowel perforation and severe sepsis
Repeat CT AP 04/03 was checked due to persistent leucocytosis, noted multiple intraabdominal abscesses
- 50 mL of fluid drained on IR CS on 01/02 and culture sent, results are negative for prelimary gram stain as well as preliminary wound culture
- ID was consulted on 01/03/24 , and asked to evaluate the patient for high leucocyte count and intra-abdominal abscesses seen on repeat CT scan
- Ertapenum started on 1000 mg Q24hr (04/05/24)
- Use antibiotics for 4 weeks.
- Order ESR, CMP on outpatient labs and follow up with PCP
- Surgical nahum need to be removed at outpatient visit with colorectal surgery
Pt is able to urinate/defecate
s/p colectomy with colostomy by CRS 03/26/2024
Wound culture from the OR grew E. coli, resistant to Cipro
IV Levofloxacin was changed to Ancef due to E coli resistance, Ancef then changed to cefepime , discontinued
discontinue IV metronidazole (04/05)
DVT ppx with Lovenox SQ
PPI for GI protection
Eventual C-scope within the next 6 to 8 weeks
# Resolved prerenal MIGUEL
resumed [employer] ACEI
# Resolved Hyponatremia
Full code
DVT prophylaxis: Lovenox SQ
Anticipated Discharge: Today
Subjective/Interval History
-
Date of Service: April 06, 2024
Objective Data
-
Labs:
Laboratory Results
04/06/24
04:06
WBC 13.6 H
Hgb 8.9 L
Hct 26.9 L
Plt Count 389
Sodium 142
Potassium 4.2
Chloride 104
Carbon Dioxide 35 H
BUN 10
Creatinine 1.0
Glucose 101 H
Calcium 8.1 L
Total Bilirubin 0.4
AST 28
ALT 18
Alkaline Phosphatase 57
Vital Signs:
Vital Signs
Temp Pulse Resp BP Pulse Ox
98.2 F 78 18 119/71 97
04/06/24 15:00 04/06/24 15:00 04/06/24 15:00 04/06/24 15:00 04/06/24 15:00
I&O
04/05/24 04/06/24 04/07/24
06:59 06:59 06:59
Intake Total 1440 / 1440 2100 / 2100
Output Total 35 / 35 610 / 610
Balance 1405 / 1405 1490 / 1490
Review of Systems
-
History Source: Patient
All other systems: Reviewed and negative
Physical Exam
-
General: Well Developed, Well Nourished, No Apparent Distress and Comfortable
HEENT: Normocephalic, Atraumatic and Moist Mucous Membranes
Respiratory: Clear to Auscultation
Cardiac: Regular Rhythm and S1/S2
GI: Soft, Nontender, Normal Bowel Sounds and Ostomy
Skin: Warm
Neuro: Awake, Alert, Oriented, AO x 3 and No Motor Deficits
Psych: Calm
Data Reviewed
-
Labs: Labs Reviewed by me and Discussed with Physician
--- NOTE | 2024-04-06 17:07 | W.DCSUMMARY ---
Documented by User: Kody Ontiveros MD, Resident 04/06/24 17:41
Discharge Summary
Discharge Data
Date of Admission: 03/25/24
Date of Discharge: 04/06/24
-
Pending Results: No
Hospital Course
Discharging Physician : Kody Ontiveros M.D., Scot Birch M.D.
Disposition : Home with
Primary care physician : Dr. Fausto Dejesus
Principal Discharge diagnosis : Acute diverticulitis with bowel perforation and severe sepsis
Chronic Discharge diagnosis : Hypertension, Normocytic anemia outpatient iron panel with ferritin folate B12, Hypothyroidism
Hospital Course :
This patient is postoperative day 12. Gilberto Romero is a 58-year-old male with a past medical history of hypothyroidism, HTN, recurrent diverticulitis presented with left lower quadrant abdominal pain to and 2 episodes of vomiting to the ER. Labs
taken on the day show a WBC of 16.6 and increased neutrophil count of 90.9. He was started on IV ciprofloxacin and metronidazole. CT scan of abdomen and pelvis on 03/25/2024 CT findings are compatible with severe diverticulosis and perforation.
Brower's procedure performed. due to a prolonged hospital course of leukocytosis after the Brower's procedure, a repeat CT scan on 04/03/2024 showed rim-enhancing multiple collections of fluid in the lower abdomen and pelvis suggestive of
abscesses and gallstones stable. Status post IR drain on 01/02 for pelvic abscesses and 50 mL of bloody cloudy fluid evacuated. The fluid was cultured and on 04/04/24 there was a result on the wound culture which showed no growth on the wound
culture and preliminary on the Gram stain with few WBC and no organisms seen. The patient is afebrile and his WBC count is continuing to improve. Infectious disease was consulted and they have changed the antibiotics to ertapenem IV PICC line was
placed on the upper right arm of the patient patient will need to be on at least 4 weeks of IV antibiotics on home home infusion of IV antibiotics. Normocytic anemia, hypertension, hypothyroidism. For the hypothyroidism continue levothyroxine 75
mix P.O.Daily
Important imaging findings :
03/25/2024 abdomen/pelvis CT with contrast, findings:
As described, CT findings compatible with severe diverticulitis.
Adjacent to the sigmoid colon in the pelvis, there is an extraluminal collection which is predominantly air, with no significant fluid component. This would be compatible with contained extraluminal perforation. No evidence for free air elsewhere
within the abdomen or pelvis.
There is a small to moderate amount of free fluid within the pelvis bilaterally and also within the pelvic cul-de-sac, likely reactive fluid.
1 cm low-density lesions within the spleen, likely a small cyst or hemangioma. This is very likely a benign lesion for which no further imaging follow-up is recommended.
Minimal posterior right pleural effusion. Trace amount of posterior left pleural fluid. Atelectasis within the lower lungs.
No CT findings to suggest acute cholecystitis.
Bilateral fat-containing inguinal hernias, and appears indirect on the left and direct on the right, larger on the left. There is also a small amount of fluid extending into the left inguinal hernia.
CT of the abdomen and pelvis with oral and IV contrast. 04/03/2024
Rim-enhancing multiple collections of fluid in the lower abdomen and pelvis suggestive of abscesses. These are increased in number and have new rim enhancement.
Associated mild small bowel ileus. New
Mild volume overload or third spacing. New
Postsurgical change. New Gallstones. Stable
Procedure findings :
CT guided pelvic abscess drainage 04/04/[address] guided drainage catheter placement into a pelvic abscess, yielding 50 mL of bloody, slightly cloudy fluid. Fluid was sent for culture and sensitivity.
Culture on 04/03/24:
no growth on wound culture
Gram strain preliminary
Discharge Plan
-
Patient Disposition: Home with Home Care
Discharge Diagnosis/Procedures: Acute diverticulitis with bowel perforation and severe sepsis
Condition: Good
Diet: Low Residue
Activity: No strenuous activity
Additional Activity: No lifting over 10lbs (gallon of milk)
Driving Restrictions: No driving for 1 week
Bathing Restrictions: OK to Shower
Others Tests: ESR,CMP, CK routine follow up on PCP, repeat CT abdomen pelvis post antibiotic completion. Normocytic anemia need iron panel with ferritin folate B12. Blood cultures if patient becomes febrile again.
Other Services: VN
Wound Care: Cover wound with gauze and tape, okay to leave open to air when closes
[place] to be removed at your office appointment with Dr. George, colorectal surgeon
Activity Restrictions/Additional Instructions:
Gilberto Romero a 58-year-old male with past medical history of hypothyroidism, hypertension, recurrent diverticulitis presented with left lower quadrant abdominal pain space and 2 episodes of vomiting to the ER on 03/25. Labs taken on that day
showed an elevated WBC count of 16.6 and elevated neutrophil count of 90.9. He was started on IV ciprofloxacin and metronidazole. CT scan at the time showed findings compatible with severe diverticulosis with perforation. Brower's procedure was
performed on 03/26/2024 and today is the 13th day postop. Hospital stay was complicated by sepsis. Repeat Ct on 04/03 showed multiple intraabdominal abbesses after a stay with prolonged leucocytosis. Culture results recieved on 04/04 and were negative
for growth, Few wbc no organisms seen on gram stain. PICC placed on the right arm. Patient is on ertapenem 1000 mg q24 hrs started 04/05 and patient is expected to continue this at home care IV infusion.
03/25/24- CT Abd/pelvis W Iv Cont
IMPRESSION: As described, CT findings compatible with severe diverticulitis.
Adjacent to the sigmoid colon in the pelvis, there is an extraluminal collection which is predominantly air, with no significant fluid component. This would be compatible with contained extraluminal perforation. No evidence for free air elsewhere
within the abdomen or pelvis.
There is a small to moderate amount of free fluid within the pelvis bilaterally and also within the pelvic cul-de-sac, likely reactive fluid.
1 cm low-density lesions within the spleen, likely a small cyst or hemangioma. This is very likely a benign lesion for which no further imaging follow-up is recommended.
Minimal posterior right pleural effusion. Trace amount of posterior left pleural fluid. Atelectasis within the lower lungs.
Cholelithiasis. No CT findings to suggest acute cholecystitis.
fat-containing inguinal hernias, and appears indirect on the left and direct on the right, larger on the left. There is also a small amount of fluid extending into the left inguinal hernia.
abdomen/ pelvis CT on 04/03/24
IMPRESSION: Rim-enhancing multiple collections of fluid in the lower abdomen and pelvis suggestive of abscesses. These are increased in number and have new rim enhancement.
Associated mild small bowel ileus. New
Mild volume overload or third spacing. New
Postsurgical change. New
Gallstones. Stable
CT guided pelvic abscess drainage- 04/05/24
IMPRESSION: Successful CT guided drainage catheter placement into a pelvic abscess, yielding 50 mL of bloody, slightly cloudy fluid. Fluid was sent for culture and sensitivity.
Wound Care Instructions
To be used for colostomy
Change q 3-4 days and if leakage
2 1/4' soft convex [place] wafer# [id number] with paste.
Or convex wafers # [id number], (firmer convex wafers)
Soha pouch# [id number]
Apply belt if still having leakage.
empty during the day when 1/2full.
Call supply company (list in folder provided) for monthly Ostomy supplies after discharge (ask VN to order supplies while on service).
Follow up with surgeon.
Call [facility] RN nurse for ostomy pouching concerns or leakage problems [phone] or [phone] or [phone].
Instructions: Low Fiber Diet
Referrals:
Efe George MD [Active] - in two weeks
Fausto Dejesus PA-C [Family Provider] - in less than 1 week
Additional Discharge Medication Instructions: Tylenol or Ibuprofen as needed for pain. Maximum dose of Tylenol is 4,000mg in 24 hours. Maximum dose of Ibuprofen is 3,200mg in 24 hours.
Prescriptions:
New
pantoprazole 40 mg Tablet,Delayed Release (Dr/Ec)
40 mg PO DAILY Qty: 30 1RF
Continued
therapeutic multivitamin Tablet
1 tab PO DAILY
levothyroxine 75 mcg Tablet
75 mcg PO DAILY
lisinopril 10 mg Tablet
10 mg PO DAILY
Discharge Orders:
Discharge Patient (As Directed); Ordered 04/06/24
Ordered By: Kody Ontiveros
Discharge Date and Time
Discharge Date/Time: 04/06/24 18:35
Print Language: BOLIVIAN

Documented by User: Scot Birch MD 04/07/24 12:33
Discharge Summary
Discharge Data
Date of Admission: 03/25/24
Date of Discharge: 04/07/24
Discharge Plan
-
Patient Disposition: Home with Home Care
Discharge Diagnosis/Procedures: Acute diverticulitis with bowel perforation and severe sepsis
Condition: Good
Diet: Low Residue
Activity: No strenuous activity
Additional Activity: No lifting over 10lbs (gallon of milk)
Driving Restrictions: No driving for 1 week
Bathing Restrictions: OK to Shower
Others Tests: ESR,CMP, CK routine follow up on PCP, repeat CT abdomen pelvis post antibiotic completion. Normocytic anemia need iron panel with ferritin folate B12. Blood cultures if patient becomes febrile again.
Other Services: VN
Wound Care: Cover wound with gauze and tape, okay to leave open to air when closes
[place] to be removed at your office appointment with Dr. George, colorectal surgeon
Activity Restrictions/Additional Instructions:
Gilberto Romero a 58-year-old male with past medical history of hypothyroidism, hypertension, recurrent diverticulitis presented with left lower quadrant abdominal pain space and 2 episodes of vomiting to the ER on 03/25. Labs taken on that day
showed an elevated WBC count of 16.6 and elevated neutrophil count of 90.9. He was started on IV ciprofloxacin and metronidazole. CT scan at the time showed findings compatible with severe diverticulosis with perforation. Brower's procedure was
performed on 03/26/2024 and today is the 13th day postop. Hospital stay was complicated by sepsis. Repeat Ct on 04/03 showed multiple intraabdominal abbesses after a stay with prolonged leucocytosis. Culture results recieved on 04/04 and were negative
for growth, Few wbc no organisms seen on gram stain. PICC placed on the right arm. Patient is on ertapenem 1000 mg q24 hrs started 04/05 and patient is expected to continue this at home care IV infusion.
03/25/24- CT Abd/pelvis W Iv Cont
IMPRESSION: As described, CT findings compatible with severe diverticulitis.
Adjacent to the sigmoid colon in the pelvis, there is an extraluminal collection which is predominantly air, with no significant fluid component. This would be compatible with contained extraluminal perforation. No evidence for free air elsewhere
within the abdomen or pelvis.
There is a small to moderate amount of free fluid within the pelvis bilaterally and also within the pelvic cul-de-sac, likely reactive fluid.
1 cm low-density lesions within the spleen, likely a small cyst or hemangioma. This is very likely a benign lesion for which no further imaging follow-up is recommended.
Minimal posterior right pleural effusion. Trace amount of posterior left pleural fluid. Atelectasis within the lower lungs.
Cholelithiasis. No CT findings to suggest acute cholecystitis.
fat-containing inguinal hernias, and appears indirect on the left and direct on the right, larger on the left. There is also a small amount of fluid extending into the left inguinal hernia.
abdomen/ pelvis CT on 04/03/24
IMPRESSION: Rim-enhancing multiple collections of fluid in the lower abdomen and pelvis suggestive of abscesses. These are increased in number and have new rim enhancement.
Associated mild small bowel ileus. New
Mild volume overload or third spacing. New
Postsurgical change. New
Gallstones. Stable
CT guided pelvic abscess drainage- 04/05/24
IMPRESSION: Successful CT guided drainage catheter placement into a pelvic abscess, yielding 50 mL of bloody, slightly cloudy fluid. Fluid was sent for culture and sensitivity.
Wound Care Instructions
To be used for colostomy
Change q 3-4 days and if leakage
2 1/4' soft convex Soha wafer# [id number] with paste.
Or convex wafers # [id number], (firmer convex wafers)
Soha pouch# [id number]
Apply belt if still having leakage.
empty during the day when 1/2full.
Call supply company (list in folder provided) for monthly Ostomy supplies after discharge (ask VN to order supplies while on service).
Follow up with surgeon.
Call [facility] RN nurse for ostomy pouching concerns or leakage problems [phone] or [phone] or [phone].
Instructions: Low Fiber Diet
Referrals:
Efe George MD [Active] - in two weeks
Fausto Dejesus PA-C [Family Provider] - in less than 1 week
Additional Discharge Medication Instructions: Tylenol or Ibuprofen as needed for pain. Maximum dose of Tylenol is 4,000mg in 24 hours. Maximum dose of Ibuprofen is 3,200mg in 24 hours.
Prescriptions:
New
pantoprazole 40 mg Tablet,Delayed Release (Dr/Ec)
40 mg PO DAILY Qty: 30 1RF
Continued
therapeutic multivitamin Tablet
1 tab PO DAILY
levothyroxine 75 mcg Tablet
75 mcg PO DAILY
lisinopril 10 mg Tablet
10 mg PO DAILY
Discharge Orders:
Discharge Patient (As Directed); Ordered 04/06/24
Ordered By: Kody Ontiveros
Discharge Date and Time
Discharge Date/Time: 04/06/24 18:35
Print Language: BOLIVIAN
--- NOTE | 2024-04-06 18:06 | PTCARENOTE ---
per CM note [facility] to supply medications. Extension of tubing attached to picc. Reviewed D/C instructions with pt
[2024-04-06] MEDS: LOVENOX SC (18:19)
== END 2024-04-06 18:35 | disposition home health service (06) | DRG 853 ==
LOC: 2 SOUTH 21:42
PROVIDERS: Internal Medicine; Nurse Practitioner Gerontology; Physician Assistant; Radiology Vascular & Interventional Radiology; Registered Nurse; Student in an Organized Health Care Education/Training Program; Surgery; ADMITTING PHYSICIAN Hospitalist; ATTENDING PHYSICIAN Hospitalist; CONSULT PHYSICIAN Surgery; EMERGENCY PHYSICIAN Emergency Medicine; FAMILY PHYSICIAN Physician Assistant Medical; OTHER PHYSICIAN Student in an Organized Health Care Education/Training Program
PROC: 0D1E0Z4 Bypass Large Intestine to Cutaneous, Open Approach (ICD-10-PCS; 2024-03-26)
PROC: 0DTN0ZZ Resection of Sigmoid Colon, Open Approach (ICD-10-PCS; 2024-03-26)
PROC: 0W9J30Z Drainage of Pelvic Cavity with Drainage Device, Percutaneous Approach (ICD-10-PCS; 2024-04-04)
DX: A41.9 Sepsis, unspecified organism (principal); K65.1 Peritoneal abscess; K65.9 Peritonitis, unspecified; K57.20 Diverticulitis of large intestine with perforation and abscess without bleeding; J98.11 Atelectasis; E87.1 Hypo-osmolality and hyponatremia; J90 Pleural effusion, not elsewhere classified; N17.9 Acute kidney failure, unspecified; K56.7 Ileus, unspecified; E03.9 Hypothyroidism, unspecified; I10 Essential (primary) hypertension; E83.51 Hypocalcemia; R65.20 Severe sepsis without septic shock; D18.09 Hemangioma of other sites; K40.20 Bilateral inguinal hernia, without obstruction or gangrene, not specified as recurrent; K80.20 Calculus of gallbladder without cholecystitis without obstruction; K21.9 Gastro-esophageal reflux disease without esophagitis; E87.70 Fluid overload, unspecified; D50.9 Iron deficiency anemia, unspecified; Z79.890 Hormone replacement therapy; Z79.899 Other long term (current) drug therapy; Z87.19 Personal history of other diseases of the digestive system; Z88.0 Allergy status to penicillin
CPT/HCPCS: 88307; 49406; 71045; 74177; 80048; 80053; 81003; 81015; 82728; 83540; 83550; 83605; 83690; 83735; 84466; 85025; 85027; 85610; 85652; 85730; 86140; 86850; 86900; 86901; 87070; 87075; 87077; 87186; 87205; 96361; 96365; 96375; 97162; 99152; 99285; C1776; J1335; Q9967

== ENCOUNTER 2024-04-25 14:39 | Emergency (ER) | payer BC, SELFPAY ==
[2024-04-25 14:52] VITALS: BP 117/77
--- NOTE | 2024-04-25 16:07 | ED.GENMED ---
History of Present Illness
General
Chief Complaint: Fever
Source: patient, spouse, previous radiology exam and previous hospital records
Exam Limitations: none
Time Seen by Provider: 04/25/24 15:38
Nursing documentation reviewed up to this point in time: agreed with
History of Present Illness
History of Present Illness:
58-year-old male presents with fever
Onset this morning, history of Diverticulitis with ostomy has a PICC line for IV antibiotics and a drain into an abscess has not really had much drainage from the abscess drain recently, is schedule get a CAT scan tomorrow
No cough no chills no sore throat
Past History
Past History
ED Past Medical History: Other (Diverticulitis)
ED Past Surgical History: Other (Ostomy bowel resection)
Social History
Tobacco: Non-smoker
Alcohol: None
Drug: None
Personal:
Living: with family
Employment: Employed
Review of Systems
Review of Systems
All Other Systems: Not applicable
Constitutional: Reports fever
EENT: Reports no symptoms
Respiratory: Reports no symptoms
Cardiac: Reports no symptoms
ABD/GI: Reports no symptoms; Denies abdominal pain
Skin: Reports no symptoms
Neurological: Reports no symptoms
Endocrine: Reports no symptoms
Hematologic/Lymphatic: Reports no symptoms
Phy Exam
Physical Exam
Physical Exam:
Physical Exam
General: no apparent distress, not acutely ill febrile
Neck: No jaundice
Heart: Tachycardia
Lungs: no acute respiratory distress. clear bilaterally
Abdomen: Soft solid stool in the ostomy scant drainage from his IR drain
Neuro: alert and oriented. no focal neurological deficits
Skin: no rash
Psychiatric: well kept. interactive and cooperative
Extremities: no edema. No calf pain
Course
Orders/Labs/Results
Orders:
Orders
04/25/24 16:02
Iohexol [Omnipaque] See Protocol PO NOW STA
04/25/24 16:03
CT Abd/pel W Iv And Oral Contr Urgent
Comment:
Reason For Exam: fever abscess
0.9% Sodium Chloride 1000 ml [Nss] 1,000 ml IV BOLUS
Acetaminophen [Tylenol] 1,000 mg PO NOW STA
04/25/24 16:27
Complete Blood Count/With Diff Urgent
Comprehensive Metabolic Panel Urgent
Blood Culture Urgent
KIANA Source: Blood/Venous
Specimen Description:
04/25/24 16:38
Blood Culture Urgent
KIANA Source: Blood/Venous
Specimen Description:
04/25/24 19:47
COVID-19 Antigen Urgent
Source: Nasal Swab
Influenza A+B Rapid Molecular Urgent
KIANA Source: Nasal Swab
Specimen Description:
Abnormal Lab Results
04/25/24
16:27
RBC 4.27 L 10^6/uL
(4.70-6.10)
Hgb 11.3 L g/dL
(13.0-18.0)
Hct 35.9 L %
(39.0-52.0)
MCH 26.5 L pg
(27.0-31.0)
MCHC 31.5 L g/dL
(33.0-37.0)
RDW 14.6 H %
(11.5-14.5)
Absolute Lymphs (auto) 0.8 L 10^3/uL
(1.2-3.4)
Immature Gran % 0.6 H %
(0-0.5)
Neutrophils % 77.4 H %
(42.2-75.2)
Lymphocytes % 12.2 L %
(20.5-51.1)
04/25/24 16:27
04/25/24 16:27
Vital Signs
Initial and Last Documented VS:
Initial Vital Signs
Temp Pulse Resp BP Pulse Ox
101.5 F H 85 18 117/77 99
04/25/24 14:52 04/25/24 14:52 04/25/24 14:52 04/25/24 14:52 04/25/24 14:52
Last Documented Vital Signs
Temp Pulse Resp BP Pulse Ox
98.8 F 75 18 142/79 98
04/25/24 17:25 04/25/24 17:25 04/25/24 18:00 04/25/24 17:25 04/25/24 17:25
MDM/Problems Addressed
Differential Diagnosis Includes:
Intra-abdominal abscess viral syndrome pneumonia no signs of DVT
MDM/Problems Addressed:
Fever
Chronic conditions affecting care:
Diverticular abscess with drain
Chronic conditions affecting care: Previous abdomnial surgery
Acute Exacerbation and/or Progression of Chronic Illness: Previous abdomnial surgery
*Radiology
Radiology exam reviewed: radiology read reviewed
*Pulse Oximetry
Patient hypoxic: no
*Critical Care Note
Total Time (30-74mins, 75-104mins- exclusive of procedures): Not Applicable
Update Note
Update Note:
Patient with fevers been on antibiotics no intra-abdominal abscesses scheduled for CT tomorrow will check labs and CT no respiratory complaints no calf pain
8 PM update patient feeling well, reviewed labs and CT with him small stranding but no collection he is on broad-spectrum antibiotics, do not suspect he has pneumonia clinically did review the possibility of a viral pathogen will check COVID and flu
I will call him if they are positive, will keep his appointment tomorrow with IR to get have his drain removed, he does not need another CAT scan I believe, additionally has a nodule on his CT I have reviewed that with him give him a copy of his CAT
scan report follow-up with his outpatient physicians
ED Attending Note
-
Portions of this chart may have been created with voice recognition software.� Occasional wrong word or��sound alike� substitutions may have occurred due to the inherent limitations of voice recognition software.
Discharge Plan
Departure
Patient Disposition: Home (Routine Discharge)
Date of Disposition: 04/25/24
Time of Disposition: 19:51
Patient with high blood pressure during this ER visit?: No
Condition: Good
Discharge Problem:
Fever
Instructions: Fever, Adult (DC)
Prescriptions:
No Action
therapeutic multivitamin Tablet
1 tab PO DAILY
levothyroxine 75 mcg Tablet
75 mcg PO DAILY
lisinopril 10 mg Tablet
10 mg PO DAILY
pantoprazole 40 mg Tablet,Delayed Release (Dr/Ec)
40 mg PO DAILY Qty: 30 1RF
Referrals:
Griffin Macias, DO [Family Provider] -
Activity Restrictions/Additional Instructions:
Follow-up with Dr. George and radiology as scheduled
Discussed the nodule seen on your CT with your primary care provider
Interventions
Interventions:
*Risk Screen - Suicide Last Done: 04/25/24 14:52
*General Assessment Last Done: 04/25/24 14:52
*Neglect/Abuse Screening Last Done: 04/25/24 17:25
ED- Fall Risk Assessment Last Done: 04/25/24 16:48
*ED COVID-19 Vaccine History Last Done: 04/25/24 14:52
ED- Neurological Assessment Last Done: 04/25/24 16:48
ED-Skin Assessment Last Done: 04/25/24 16:48
Discharge Date and Time
Print Language: AFGHAN
[2024-04-25] MEDS: OMNIPAQUE 50 ML PO (16:28)
[2024-04-25 16:29] VITALS: BMI 27.9
[2024-04-25] MEDS: NSS 1000 IV (16:29)
[2024-04-25] MEDS: TYLENOL 1000 MG PO (16:29)
[2024-04-25 16:53] LABS: % Basophils 0.4 % (0-2); % Eosinophils 0.4 % (0-6); % Immature Granulocytes 0.6 % (0-0.5); % Lymphocytes 12.2 % (20.5-51.1); Absolute Lymphocytes 0.8 10^3/uL (1.2-3.4); Absolute Monocytes 0.6 10^3/uL (0.1-0.6); Absolute Neutrophils 5.3 10^3/uL (1.4-6.5); Hemoglobin 11.3 g/dL (13.0-18.0); Mean Platelet Volume 10.1 fL (7.4-10.4); Nucleated Red Blood Cells % 0 % (-); Red Blood Cell Count 4.27 10^6/uL (4.70-6.10); Red Cell Dist. Width 14.6 % (11.5-14.5); White Blood Cell Count 6.8 10^3/uL (4.8-10.8)
[2024-04-25 17:00] LABS: Hematocrit 35.9 % (39.0-52.0); Mean Corp Hgb Conc. 31.5 g/dL (33.0-37.0); Mean Corpuscular Hgb 26.5 pg (27.0-31.0); Mean Corpuscular Volume 84.1 fL (80.0-94.0); Platelet Count 164 10^3/uL (130-400)
[2024-04-25 17:01] LABS: % Neutrophils 77.4 % (42.2-75.2)
[2024-04-25 17:05] LABS: ALT (SGPT) 15 U/L (0-50); AST (SGOT) 26 U/L (17-59); Albumin 4.1 g/dl (3.5-5.0); Alkaline Phosphatase 108 U/L (38-126); Blood Urea Nitrogen 12 mg/dl (9-20); Calcium 9.6 mg/dl (8.4-10.2); Carbon Dioxide 30 mmol/L (22-30); Chloride 103 mmol/L (98-107); Estimated Creatinine Clearance 79 ml/min; Glucose 93 mg/dl (70-99); Potassium 4.6 mmol/L (3.5-5.1); Sodium 144 mmol/L (135-145); Total Protein 7.1 g/dl (6.3-8.2); eGFR > 60.00
[2024-04-25 17:25] VITALS: BP 142/79
[2024-04-25 19:59] VITALS: BP 139/76
[2024-04-25 20:15] LABS: COVID-19 Antigen Negative (Negative)
--- NOTE | 2024-05-03 10:27 | OID.L.PAT ---
Pulmonary Nodule Pat Letter
- -
05/03/24
SANA BURTON
[address]
[place], [place]
Deachar HOOD,
A pulmonary nodule was seen on an imaging study done by [facility]. This was reviewed by the [facility] Pulmonary Nodule Advisory Board and the following recommendation was made:
Recommendation: Based on current guidelines, no further follow up is necessary
If you have any questions, please do not hesitate to contact your primary care physician. If you are in need of a Physician, you can go to [email or web address] and click on 'Find a Provider'. Type 'Family Medicine' in the search.
Oncology Nurse Navigator
[facility]
[phone]
--- NOTE | 2024-05-03 10:27 | OID.L.REC ---
Pulmonary Nodule Follow Up
- Recommendation
05/03/24
Pulmonary Nodule Review Recommendations
Your patient, SANA BURTON, had a pulmonary nodule seen on an imaging study done on 04/25/24 in the [facility] Emergency Room.
This was reviewed by the [facility] Pulmonary Nodule Advisory Board and the following recommendation was made:
Recommendation: Based on current guidelines, no further follow up is necessary
If you have any questions please do not hesitate to contact us.
Sincerely,
Oncology Nurse Navigator
[facility]
[phone]
== END 2024-04-25 20:00 | disposition home or self-care (01) ==
LOC: EMR 14:39
PROVIDERS: EMERGENCY PHYSICIAN Emergency Medicine; FAMILY PHYSICIAN Family Medicine
DX: R50.9 Fever, unspecified (principal); Z87.19 Personal history of other diseases of the digestive system; Z93.3 Colostomy status
CPT/HCPCS: 74177; 80053; 85025; 87040; 87502; 87811; 99284; Q9967

== ENCOUNTER → 2024-04-26 09:30 | Outpatient (REF) | payer BC, SELFPAY ==
[2024-04-26 09:45] VITALS: BP 124/77; BP_SYST 68
[2024-04-26 10:49] VITALS: BP 128/72
== END ==
LOC: RADI 09:30
PROVIDERS: ATTENDING PHYSICIAN Physician Assistant; FAMILY PHYSICIAN Physician Assistant Medical
DX: Z46.82 Encounter for fitting and adjustment of non-vascular catheter (principal); K65.1 Peritoneal abscess
CPT/HCPCS: 49424; 76080

== ENCOUNTER 2024-07-02 06:06 | Inpatient (IN) | payer BC, SELFPAY ==
[2024-06-21 08:28] VITALS: BMI 28.8
[2024-06-21 08:58] LABS: Hematocrit 40.5 % (39.0-52.0); Hemoglobin 12.8 g/dL (13.0-18.0); Mean Corp Hgb Conc. 31.6 g/dL (33.0-37.0); Mean Corpuscular Volume 82.2 fL (80.0-94.0); Mean Platelet Volume 10.6 fL (7.4-10.4); Platelet Count 188 10^3/uL (130-400); Red Blood Cell Count 4.93 10^6/uL (4.70-6.10); Red Cell Dist. Width 14.7 % (11.5-14.5)
[2024-06-21 09:10] LABS: PT 13.7 Sec (11.4-14.6)
[2024-06-21 09:11] LABS: APTT 28.4 Sec (23.4-35.0)
[2024-06-21 09:20] LABS: ALT (SGPT) 19 U/L (0-50); AST (SGOT) 21 U/L (17-59); Albumin 4.3 g/dl (3.5-5.0); Alkaline Phosphatase 87 U/L (38-126); Blood Urea Nitrogen 15 mg/dl (9-20); Calcium 9.2 mg/dl (8.4-10.2); Carbon Dioxide 29 mmol/L (22-30); Chloride 103 mmol/L (98-107); Estimated Creatinine Clearance 72 ml/min; Glucose 89 mg/dl (70-99); Potassium 4.4 mmol/L (3.5-5.1); Sodium 146 mmol/L (135-145); Total Bilirubin 0.5 mg/dl (0.2-1.3); Total Protein 7.1 g/dl (6.3-8.2); eGFR > 60.00
[2024-06-21 09:30] LABS: Glycohemoglobin (HgbA1c) 5.1 % (4.0-5.6)
[2024-07-02] VITALS (12 sets, daily range): BP systolic 123–157; BP diastolic 63–86; BMI 28.8
[2024-07-02] MEDS: ENTEREG 12 MG PO (06:14)
[2024-07-02] MEDS: TYLENOL 1000 MG PO (06:14)
[2024-07-02] MEDS: HEPARIN 5000 UNITS SC (06:14)
--- NOTE | 2024-07-02 11:49 | W.IMMPOSTOP ---
Surgical Immed Post Op Note
-
Primary Surgeon: Fernando George MD
Assistants: CARMENZA Phelps & LIZZY Naik
Pre-op Diagnosis: Colostomy and gallstones
Post-op Diagnosis: Same
Procedure Performed: Robotic colostomy closure with intracorporeal anastomosis
Anesthesia Type: GET
Specimen / Cultures: None
Estimated Blood Loss: 15cc
Complications: None
Operative Findings: Multiple filmy adhesions
28mm EEA
Normal leak test
Normal appearing gallbladder
Patient's updated.
[2024-07-02] MEDS: TORADOL 15 MG IV ×2 (12:45→17:07)
--- NOTE | 2024-07-02 13:36 | PTCARENOTE ---
Pt arrived 2S in bed. Full assessment completed. IVF infusing per order. L abdominal DSG with a moderate amount of output noted, drainage marked. Abdominal lap sites C/D/I, glued and DAV. Heart catheter clean and intact, draining urine. CLD reviewed
with pt, pt verbalized understanding. Bed locked and in the lowest position, safety maintained. Oriented to room and call lucia.
[2024-07-02] MEDS: TYLENOL PO ×2 (13:47→19:29)
[2024-07-02] MEDS: D5LR 1000 IV (14:45)
[2024-07-02] MEDS: TYLENOL 650 MG PO (16:30)
[2024-07-03] MEDS: D5LR 1000 IV (00:42)
[2024-07-03] MEDS: TYLENOL PO ×2 (00:45→04:22)
[2024-07-03] MEDS: TORADOL IV (00:45)
[2024-07-03 03:03] VITALS: BP 108/68
[2024-07-03] MEDS: SYNTHROID 75 MCG PO (05:41)
[2024-07-03] MEDS: TORADOL 15 MG IV ×2 (05:41→11:45)
[2024-07-03 06:36] VITALS: BMI 29.0
[2024-07-03 06:51] LABS: % Basophils 0.1 % (0-2); % Immature Granulocytes 0.5 % (0-0.5); % Lymphocytes 7.2 % (20.5-51.1); % Monocytes 7.5 % (1.7-9.3); % Neutrophils 84.7 % (42.2-75.2); Absolute Immature Granulocytes 0.1 10^3/uL (0-0.05); Absolute Neutrophils 11.5 10^3/uL (1.4-6.5); Hematocrit 36.6 % (39.0-52.0); Hemoglobin 11.5 g/dL (13.0-18.0); Mean Corp Hgb Conc. 31.4 g/dL (33.0-37.0); Mean Corpuscular Hgb 25.3 pg (27.0-31.0); Mean Corpuscular Volume 80.6 fL (80.0-94.0); Mean Platelet Volume 10.3 fL (7.4-10.4); Nucleated Red Blood Cells % 0 % (-); Platelet Count 186 10^3/uL (130-400); Red Blood Cell Count 4.54 10^6/uL (4.70-6.10); Red Cell Dist. Width 14.9 % (11.5-14.5); White Blood Cell Count 13.5 10^3/uL (4.8-10.8)
[2024-07-03 07:16] LABS: Blood Urea Nitrogen 11 mg/dl (9-20); Calcium 8.7 mg/dl (8.4-10.2); Carbon Dioxide 28 mmol/L (22-30); Chloride 107 mmol/L (98-107); Estimated Creatinine Clearance 79 ml/min; Glucose 115 mg/dl (70-99); Potassium 4.6 mmol/L (3.5-5.1); Sodium 143 mmol/L (135-145); eGFR > 60.00
[2024-07-03 07:57] VITALS: BP 141/78
[2024-07-03] MEDS: ZESTRIL 10 MG PO (08:14)
[2024-07-03] MEDS: ENTEREG 12 MG PO (08:14)
[2024-07-03] MEDS: TYLENOL 650 MG PO ×2 (08:14→11:45)
--- NOTE | 2024-07-03 10:33 | W.PN.CRS1 ---
Today's Communication / Plan
-
Advance diet
Assessment/Plan
-
59 yo male with h/o perfortated diverticulitis with prior colostomy creation who is now POD #1 robotic colostomy closure
Following expected post operative course
Passing flatus and tolerating clears
Pain well managed
--Advance to LRD
--D/C childs for voiding trial
--Analgesics as needed and scheduled
--OOB/Ambulate/IS
--Complete this bag of IVF then d/c
--Lovenox 40mg sq for VTE ppx
Subjective Data
Procedure
07/02/24 Robotic colostomy closure with intracorporeal anastomosis
Subjective Data
Date of Service: July 03, 2024
Patient seen and examined at bedside with Dr George. Brien n/v. Tolerating liquids. Passing gas. Pain well controlled.
Objective Data
-
Vital Signs
Temp Pulse Resp BP Pulse Ox
98.7 F 62 16 141/78 98
07/03/24 07:57 07/03/24 07:57 07/03/24 07:57 07/03/24 07:57 07/03/24 08:00
Intake & Output
07/02/24 07/03/24 07/04/24
06:59 06:59 06:59
Intake Total 1510 / 1510
Output Total 3300 / 3300
Balance -1790 / -1790
Intake:
Oral fluids 960 / 960
IV fluids (Total) 550 / 550
Normosol 100 / 100
Output:
Urine, Childs 3300 / 3300
Other:
Number of approximated MODERATE 3
amounts of urine
Lab Results
07/03/24 05:55
07/03/24 05:55
Physical Exam
-
General: No Acute Distress
HEENT: Grossly Normal
Abdomen: Soft, Non Distended and Non Tender
Skin: Warm and Dry
Incision: Clear, Dry, Intact
[2024-07-03 11:30] VITALS: BP 146/77
--- NOTE | 2024-07-03 11:37 | CM ---
Patient seen at bedside. Patient confirmed that he lives with his spouse in a 2 story home, no steps to enter, patient was independent with adl's and ambulation no dme, patient drives. Patient PCP is Dr. Beltran and patient uses the [place]
pharm[facility]. Patient has had [facility] and [facility] in the past. Patient currently has no VN. Patient plan is home with no needs. CM will continue to follow for discharge planning needs.
Plan;home with no needs vs home with VN
--- NOTE | 2024-07-03 14:37 | W.DCSUMMARY ---
Discharge Summary
Discharge Data
Date of Admission: 07/02/24
Date of Discharge: 07/03/24
-
Pending Results: No
Hospital Course
Mr Leavitt is a 59 yo male with a history of perforated diverticulitis with colostomy creation who presents this admission for reversal. He tolerated the procedure well without complication. Diet was able to be advanced and well tolerated post
operatively with good control of pain. He was discharged to home for outpatient follow up in the coming weel.
Discharge Plan
-
Patient Disposition: Home (Routine Discharge)
Discharge Diagnosis/Procedures: Robotic colostomy closure
Condition: Good
Diet: Low Residue
Activity: No strenuous activity
Additional Activity: Do not lift over 10lbs (gallon of milk)
Driving Restrictions: Wait until comfortable twisting/off narcotics
Bathing Restrictions: OK to Shower
Wound Care: On Friday, remove the white bisi drain underneath your casimiro by gently sliding it out. Casimiro will be removed at your follow up appointment approximate 3 weeks after surgery. Remove dressing prior to showering. Keep the incision
site where your prior ostomy was covered with clean, dry gauze and change daily and as needed. Ok to leave off dressing once drainage no longer present.
Activity Restrictions/Additional Instructions:
Call your surgeon if you have nausea with vomiting, fever >100.5, or worsening abdominal pain
Referrals:
Efe George MD [Active] - in two to four weeks
Griffin Macias DO [Family Provider] -
Prescriptions:
New
acetaminophen 325 mg tablet
650 mg PO Q4HPRN PRN (Reason: mild pain) Qty: 1 0RF
ibuprofen 200 mg tablet
400 - 600 mg PO Q6HPRN PRN (Reason: moderate pain) Qty: 1 0RF
Continued
therapeutic multivitamin Tablet
1 tab PO DAILY
levothyroxine 75 mcg Tablet
75 mcg PO DAILY
lisinopril 10 mg Tablet
10 mg PO DAILY
Discontinued
Fleet Enema 19-7 gram/118 mL Enema
118 ml [place] DIRECTED
Rx Instructions:
PRE-OP
Sutab 1.479-0.188- 0.225 gram Tablet
0 tab PO PER PKG DIR
Rx Instructions:
PRE-OP
metronidazole 500 mg Tablet
500 mg PO .
neomycin 500 mg Tablet
1 g PO .
Discharge Orders:
Discharge Patient (As Directed); Ordered 07/03/24
Ordered By: Manisha Ellsworth
Discharge Date and Time
Print Language: [email or web address]
[2024-07-03 15:00] VITALS: BP 117/82
== END 2024-07-03 15:04 | disposition home or self-care (01) | DRG 346 ==
LOC: 2 SOUTH 06:06
PROVIDERS: ADMITTING PHYSICIAN Surgery; FAMILY PHYSICIAN Family Medicine
PROC: 0DSM4ZZ Reposition Descending Colon, Percutaneous Endoscopic Approach (ICD-10-PCS; 2024-07-02)
DX: Z43.3 Encounter for attention to colostomy (principal); K80.20 Calculus of gallbladder without cholecystitis without obstruction
CPT/HCPCS: 36415; 80048; 80053; 83036; 85025; 85027; 85610; 85730; 86850; 86900; 86901; 93005; J1335